=== PATIENT | female | born 1960 | race African-American/Black ===

== ENCOUNTER 2018-07-24 13:01 | Emergency (ER) | payer MEDICAID ==
[~2018-07-24] VITALS: Ht 180.3 cm; Wt 88.2 kg
[2018-07-24] MEDS ORDERED: PREDNISONE PO (14:04)
[2018-07-24] MEDS ORDERED: [UNRECOGNIZED DRUG - OTHER] PO (14:04)
[2018-07-24 14:13] LABS: BASOPHILS # (AUTO) 0.05 x10^3/uL (0-0.1); BASOPHILS % (AUTO) 1 % (0-1); EOSINOPHILS % (AUTO) 3 % (1-7); LYMPHOCYTES # (AUTO) 1.37 x10^3/uL (1-3.4); LYMPHOCYTES % (AUTO) 17 % (22-44); MD NO; MEAN CORPUSCULAR HEMOGLOBIN 26.4 pg (27.0-34.8); MEAN CORPUSCULAR HGB CONC 33.4 g/dL (32.4-35.8); MEAN CORPUSCULAR VOLUME 78.9 fL (80-100); MEAN PLATELET VOLUME 6.9 fL (7.4-10.4); MONOCYTES # (AUTO) 0.26 x10^3/uL (0.2-0.8); MONOCYTES % (AUTO) 3 % (2-9); NEUTROPHILS # (AUTO) 6.15 x10^3/uL (1.8-6.8); NEUTROPHILS % (AUTO) 77 % (42-75); PLATELET COUNT 303 x10^3/uL (130-400); RED BLOOD COUNT 4.17 x10^6/uL (3.82-5.3); RED CELL DISTRIBUTION WIDTH 15.6 % (9.6-15.2)
[2018-07-24 14:25] LABS: ALBUMIN 3.6 g/dL (3.4-5.0); ANION GAP 11 mmol/L (5-15); CALCIUM 8.7 mg/dL (8.5-10.1); CHLORIDE 115 mmol/L (98-107)
[2018-07-24 14:29] LABS: ALANINE AMINOTRANSFERASE 16 U/L (12-78); ALKALINE PHOSPHATASE 286 U/L (45-117); BILIRUBIN,TOTAL 0.2 mg/dL (0.2-1.0); CREATININE 4.71 mg/dL (0.55-1.02); TOTAL PROTEIN 7.9 g/dL (6.4-8.2)
[2018-07-24 15:46] VITALS: BP 177/73
== END 2018-07-24 15:48 | disposition home or self-care (01) ==
LOC: ED 15:40
DX: I10 Essential (primary) hypertension (principal); N19 Unspecified kidney failure; N28.9 Disorder of kidney and ureter, unspecified; Z76.0 Encounter for issue of repeat prescription
CPT/HCPCS: 36415; 71045; 80053; 85025; 93005; 99284

== ENCOUNTER 2018-09-08 15:04 | Emergency (ER) | payer MEDICAID ==
[~2018-09-08] VITALS: Ht 180.3 cm; Wt 84.9 kg
[~2018-09-08 15:04] MED LIST: PREDNISONE PO; [UNRECOGNIZED DRUG - OTHER] PO
[2018-09-08 15:54] VITALS: BP 172/90
[2018-09-08] MEDS ORDERED: NIFE30TA2 PO (16:10)
[2018-09-08] MEDS ORDERED: ALBU6.7H INH (16:10)
[2018-09-08] MEDS ORDERED: FLUT1DIS5 IH (16:10)
== END 2018-09-08 16:06 | disposition home or self-care (01) ==
LOC: ED 16:00
DX: J18.9 Pneumonia, unspecified organism (principal); Z76.0 Encounter for issue of repeat prescription; I10 Essential (primary) hypertension; J45.909 Unspecified asthma, uncomplicated; M19.90 Unspecified osteoarthritis, unspecified site
CPT/HCPCS: 71046; 99283

== ENCOUNTER 2018-11-14 18:03 | Emergency (ER) | payer MEDICAID ==
[~2018-11-14] VITALS: Ht 180.3 cm; Wt 86.0 kg
[~2018-11-14 18:03] MED LIST changes: +ALBU6.7H INH; +FLUT1DIS5 IH; +NIFE30TA2 PO
--- NOTE | 2018-11-14 18:49 | NUR ---
PT PRESENTED TO ED WITH COUGH X 1.5 WEEKS. PT WITH HX: ASTHMA. PT A&OX4. PT PLACED IN ROOM AND PLACED ON BP AND CONT. PULSE OXIMETER. ASSESSMENT COMPLETED. CALL LIGHT IN REACH.
--- NOTE | 2018-11-14 18:52 | NUR ---
EKG DONE AND PRESENTED TO
--- NOTE | 2018-11-14 18:53 | NUR ---
PT STATES SHE HAS BEEN OUT OF HER BP MEDS AND ASTHMA INHALERS.
[2018-11-14 18:54] LABS: ANION GAP 9 mmol/L (5-15); CALCIUM 8.3 mg/dL (8.5-10.1); CHLORIDE 111 mmol/L (98-107); CREATININE 4.88 mg/dL (0.55-1.02)
[2018-11-14 18:58] LABS: ALKALINE PHOSPHATASE 322 U/L (45-117); BILIRUBIN,TOTAL 0.2 mg/dL (0.2-1.0); TOTAL PROTEIN 8.6 g/dL (6.4-8.2); TROPONIN I < 0.015 ng/mL (0.000-0.045)
[2018-11-14] MEDS ORDERED: niFEDipine ER 30 MG TABLET.ER PO ONE (19:00)
[2018-11-14 19:02] LABS: ALANINE AMINOTRANSFERASE 16 U/L (12-78)
[2018-11-14 19:07] LABS: BASOPHILS # (AUTO) 0.09 x10^3/uL (0-0.1); BASOPHILS % (AUTO) 1 % (0-1); EOSINOPHILS % (AUTO) 7 % (1-7); LYMPHOCYTES # (AUTO) 2.33 x10^3/uL (1-3.4); LYMPHOCYTES % (AUTO) 28 % (22-44); MD NO; MEAN CORPUSCULAR HEMOGLOBIN 26.5 pg (27.0-34.8); MEAN CORPUSCULAR HGB CONC 33.7 g/dL (32.4-35.8); MEAN CORPUSCULAR VOLUME 78.8 fL (80-100); MEAN PLATELET VOLUME 7.1 fL (7.4-10.4); MONOCYTES # (AUTO) 0.47 x10^3/uL (0.2-0.8); MONOCYTES % (AUTO) 6 % (2-9); NEUTROPHILS # (AUTO) 4.98 x10^3/uL (1.8-6.8); NEUTROPHILS % (AUTO) 59 % (42-75); PLATELET COUNT 330 x10^3/uL (130-400); RED BLOOD COUNT 4.14 x10^6/uL (3.82-5.3); RED CELL DISTRIBUTION WIDTH 16.6 % (9.6-15.2)
--- NOTE | 2018-11-14 19:07 | NUR ---
REPORT GIVEN TO RAKAN DIAZ
[2018-11-14 19:16] LABS: MICROSCOPIC AUTO
--- NOTE | 2018-11-14 19:30 | NUR ---
REPORT OF PT FROM JOE FINLEY AND ASSUMING CARE OF PT.
--- NOTE | 2018-11-14 19:51 | NUR ---
YELLOW SLIP SENT TO PHARMACY FOR MED PER NOV.
[2018-11-14 20:04] VITALS: BP 182/89
--- NOTE | 2018-11-14 20:04 | NUR ---
PT VSS AND UPDATED IN EMR.
--- NOTE | 2018-11-14 20:18 | NUR ---
PT MEDICATED PER MAR.
== END 2018-11-14 21:54 | disposition home or self-care (01) ==
LOC: ED 21:48
DX: N30.00 Acute cystitis without hematuria (principal); I10 Essential (primary) hypertension; J45.909 Unspecified asthma, uncomplicated; M19.90 Unspecified osteoarthritis, unspecified site; Z76.0 Encounter for issue of repeat prescription; Z87.01 Personal history of pneumonia (recurrent)
CPT/HCPCS: 36415; 71046; 80053; 81001; 83880; 84484; 85025; 93005; 99284

== ENCOUNTER 2019-01-20 02:49 | Emergency (ER) | payer MEDICAID ==
[~2019-01-20] VITALS: Ht 180.3 cm; Wt 82.0 kg
[2019-01-20 02:51] VITALS: BP 201/100
--- NOTE | 2019-01-20 03:02 | NUR ---
FIRST CONTACT WITH PT. PT NEED MEDICATION REFILL ON BP MEDS AND ASTHMA MEDS. HASNT TAKEN BP MEDS FOR 1 MONTH. PT HYPERTENSIVE IN TRIAGE BUT DENIES SEPULVEDA, DIZZINESS OR CHEST PAIN. PT'S AOX4. RESPS EVEN AND UNLABORED.
--- NOTE | 2019-01-20 03:38 | NUR ---
PT GIVEN DC INSTRUCTIONS AND SCRIPTS. PT EDUCATED REGARDING DC MEDICATIONS. PT'S AOX4. RESPS EVEN AND UNLABORED. PT AMB TO DC WITH STEADY GAIT. NO ACUTE DISTRESS AT DC.
== END 2019-01-20 03:39 | disposition home or self-care (01) ==
LOC: ED 03:00
DX: I10 Essential (primary) hypertension (principal); Z76.0 Encounter for issue of repeat prescription; J45.909 Unspecified asthma, uncomplicated; F17.200 Nicotine dependence, unspecified, uncomplicated
CPT/HCPCS: 93005; 99283

== ENCOUNTER 2019-10-10 15:34 | Emergency (ER) | payer MEDICAID ==
[~2019-10-10] VITALS: Ht 180.3 cm; Wt 87.6 kg
[~2019-10-10 15:34] MED LIST changes: -ALBU6.7H INH; +ALBU6.7H8 INH
--- NOTE | 2019-10-10 16:00 | NUR ---
PHARMACY REQUEST SLIP SENT TO PHARMACY FOR PROCARDIA.
[2019-10-10 16:11] VITALS: BP 176/93
--- NOTE | 2019-10-10 16:27 | NUR ---
Patient given discharge instructions and they have confirmed that they understand the instructions. Patient ambulatory with steady gait.
== END 2019-10-10 16:57 | disposition home or self-care (01) ==
LOC: ED 16:30
DX: J45.30 Mild persistent asthma, uncomplicated (principal); F17.200 Nicotine dependence, unspecified, uncomplicated; I10 Essential (primary) hypertension; R94.31 Abnormal electrocardiogram [ECG] [EKG]; Z90.5 Acquired absence of kidney; Z76.0 Encounter for issue of repeat prescription
CPT/HCPCS: 93005; 99283

== ENCOUNTER 2020-02-14 12:10 | Emergency (ER) | payer MEDICAID ==
[~2020-02-14] VITALS: Ht 180.3 cm; Wt 84.5 kg
--- NOTE | 2020-02-14 14:11 | NUR ---
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
[2020-02-14 15:01] VITALS: BP 146/83
--- NOTE | 2020-02-14 15:01 | NUR ---
PT UPRIGHT ON GURNEY AWAKE & COMFORTABLE, WATCHING TV, NAD, RESPONDS APPROP TO STAFF, COMFORT MEASURES PROVIDED, CALL LIGHT WITHIN REACH.
--- NOTE | 2020-02-14 15:10 | NUR ---
PT TO RAD
--- NOTE | 2020-02-14 15:22 | NUR ---
PT FROM RAD TO US
--- NOTE | 2020-02-14 16:01 | NUR ---
PT RETURNED FROM US, LAYING ON GURNEY AWAKE & COMFORTABLE, WATCHING TV, NAD, RESPONDS APPROP TO STAFF, NO NEEDS AT THIS TIME, CALL LIGHT WITHIN REACH.
--- NOTE | 2020-02-14 16:36 | NUR ---
TASK RN: Patient given discharge instructions and they have confirmed that they understand the instructions. Patient ambulatory with steady gait.
== END 2020-02-14 16:38 | disposition home or self-care (01) ==
LOC: ED 14:45
DX: N63.0 Unspecified lump in unspecified breast (principal); R06.02 Shortness of breath; I10 Essential (primary) hypertension; J45.909 Unspecified asthma, uncomplicated; Z90.5 Acquired absence of kidney
CPT/HCPCS: 71046; 76642; 99284

== ENCOUNTER 2020-03-14 09:01 | Outpatient (CLI) | payer MEDICAID | END 2020-03-14 23:59 | disposition home or self-care (01) | LOC: CFH 09:01 | PROVIDERS: ATTEND Specialist | DX: N63.42 Unspecified lump in left breast, subareolar (principal) | CPT/HCPCS: 76642; 77066; G0279 ==

== ENCOUNTER 2020-03-20 07:58 | Outpatient (CLI) | payer MEDICAID ==
[2020-03-20] MEDS ORDERED: SODIUM BICARBONATE 4.2%, 5ML ONE (08:30)
[2020-03-20] MEDS ORDERED: LIDOCAINE 1%, 20ML ONE (08:30)
[2020-03-20] MEDS ORDERED: LIDOCAINE 1%-EPI 1:100K, 20ML ONE (08:30)
== END 2020-03-20 23:59 | disposition home or self-care (01) ==
LOC: CFH 07:58
PROVIDERS: ATTEND Specialist
DX: N63.25 Unspecified lump in the left breast, overlapping quadrants (principal); D24.2 Benign neoplasm of left breast
CPT/HCPCS: 19083; 77065; 88305; J3490; 19285

== ENCOUNTER 2020-07-16 20:12 | Inpatient (IN) | payer MEDICAID ==
[~2020-07-16] VITALS: Ht 180.3 cm; Wt 83.5 kg
--- NOTE | 2020-07-16 20:20 | NUR ---
Provider at bedside
--- NOTE | 2020-07-16 20:29 | NUR ---
BIBA. A&o x4, answering questions appropriately. C/o N/V x 1 week, unable to tolerate PO intake with associated increased weakness. Per EMS, pt had difficulty ambulating with 2 staff assist. Pt states hx of renal failure. Per pt report, PCP has not recommended starting dialysis yet. Pt states she has noticed dark red blood in bile x2 days. Abd soft, flat, nondistended. No tenderness noted to abd or flank bilaterally upon palpation. States no BM x1 week, hx of similar. Also c/o chills, unknown if she has been febrile. States boyfriend has had fever. Denies chest pain. Denies SOB. Placed on continuous tele/O2 monitoring. No s/sx acute distress. Bed low, side rails up, call negro within reach
[2020-07-16] MEDS ORDERED: SODIUM CHLORIDE 0.9% 1,000ML IVBOLUS ONE (20:30)
[2020-07-16] MEDS ORDERED: ONDANSETRON 2MG/ML, 2ML IVPush ONE (20:30)
[2020-07-16 21:10] LABS: BASOPHILS % (AUTO) 1 % (0-1); EOSINOPHILS % (AUTO) 1 % (1-7); LYMPHOCYTES % (AUTO) 15 % (22-44); MEAN CORPUSCULAR HEMOGLOBIN 25.9 pg (27.0-34.8); MEAN CORPUSCULAR HGB CONC 32.5 g/dL (32.4-35.8); MEAN PLATELET VOLUME 8.1 fL (7.4-10.4); MONOCYTES % (AUTO) 8 % (2-9); NEUTROPHILS % (AUTO) 75 % (42-75); PLATELET COUNT 196 x10^3/uL (130-400); RED BLOOD COUNT 3.17 x10^6/uL (3.82-5.3); RED CELL DISTRIBUTION WIDTH 16.2 % (9.6-15.2)
[2020-07-16 21:13] LABS: ALANINE AMINOTRANSFERASE 12 U/L (12-78); ALBUMIN 3.5 g/dL (3.4-5.0); ANION GAP 21 mmol/L (5-15); CALCIUM 7.6 mg/dL (8.5-10.1); CHLORIDE 106 mmol/L (98-107)
[2020-07-16 21:17] LABS: ALKALINE PHOSPHATASE 318 U/L (45-117); BILIRUBIN,TOTAL 0.4 mg/dL (0.2-1.0); TOTAL PROTEIN 8.4 g/dL (6.4-8.2); TROPONIN I < 0.015 ng/mL (0.000-0.045)
[2020-07-16 21:36] LABS: INTERNATIONAL NORMALIZED RATIO 1.08 (0.93-1.1); PROTHROMBIN TIME 11.4 Seconds (9.6-11.5)
[2020-07-16 21:39] LABS: MD MORPH REVIEW ONLY
[2020-07-16 21:53] LABS: ANISOCYTOSIS 1+; MICROCYTOSIS 1+
[2020-07-16 21:54] LABS: HYPOCHROMIA 1+
[2020-07-16 21:55] LABS: <PLATELET ESTIMATE> ADEQUATE; <PLT MORPHOLOGY> NORMAL PLT MORPH
[2020-07-16] MEDS ORDERED: SODIUM BICARBONATE 8.4% 150 MEQ in DEXTROSE 5% 1,000 ML IV ONE (22:30)
--- NOTE | 2020-07-16 22:56 | NUR ---
Attempted report x1 at [id number]
[2020-07-16] MEDS ORDERED: LABETALOL 5MG/ML, 20ML IVPush PRN (23:00)
[2020-07-16] MEDS ORDERED: ACETAMINOPHEN 325 MG TABLET PO PRN (23:00)
[2020-07-16] MEDS ORDERED: ALBUTEROL HFA 90 MCG/SPRAY INH PRN (23:00)
[2020-07-16] MEDS ORDERED: SODIUM BICARBONATE 8.4% 150 MEQ in DEXTROSE 5% 1,000 ML IV SCH (23:00)
[2020-07-16] MEDS ORDERED: DOCUSATE 100 MG CAPSULE PO PRN (23:00)
--- NOTE | 2020-07-16 23:56 | NUR ---
Attempted 2nd IV x2 with no effect. Awaiting 2nd liter IVF with bicarb from pharmacy. Inpatient RN aware.
--- NOTE | 2020-07-16 23:56 | NUR ---
Report given to Theron DIAZ
[2020-07-17] VITALS (10 sets, daily range): BP systolic 121–172; BP diastolic 71–94
[2020-07-17] MEDS: SODIUM BICARBONATE 8.4% 150 MEQ in DEXTROSE 5% 1,000 ML IV SCH ×5 (01:38→23:45)
[2020-07-17] MEDS: HEPARIN 5,000 UNITS/ML, 1ML SQ SCH ×3 (01:39→18:16)
[2020-07-17] MEDS ORDERED: ROCURONIUM 10MG/ML,5ML ONE (02:00)
[2020-07-17] MEDS ORDERED: PROPOFOL 10 MG/ML, 100ML IV ONE (02:00)
[2020-07-17] MEDS ORDERED: ETOMIDATE 20 MG/10 ML ONE (02:00)
[2020-07-17 02:36] LABS: ANION GAP 22 mmol/L (5-15); CHLORIDE 102 mmol/L (98-107)
[2020-07-17 03:45] LABS: CHOL/HDL RATIO 4.6; LDL/HDL RATIO 2.3 (0.5-3.0)
[2020-07-17 04:36] LABS: ANION GAP 20 mmol/L (5-15); CALCIUM 6.7 mg/dL (8.5-10.1); CHLORIDE 102 mmol/L (98-107)
[2020-07-17 05:01] LABS: BASOPHILS % (AUTO) 1 % (0-1); EOSINOPHILS % (AUTO) 2 % (1-7); LYMPHOCYTES % (AUTO) 18 % (22-44); MEAN CORPUSCULAR HEMOGLOBIN 26.7 pg (27.0-34.8); MEAN CORPUSCULAR HGB CONC 34.2 g/dL (32.4-35.8); MEAN PLATELET VOLUME 7.9 fL (7.4-10.4); MONOCYTES % (AUTO) 7 % (2-9); NEUTROPHILS % (AUTO) 73 % (42-75); PLATELET COUNT 159 x10^3/uL (130-400); RED BLOOD COUNT 2.47 x10^6/uL (3.82-5.3); RED CELL DISTRIBUTION WIDTH 15.7 % (9.6-15.2)
[2020-07-17 06:00] LABS: ANISOCYTOSIS 1+; MD MORPH REVIEW ONLY; MICROCYTOSIS 1+; SPHEROCYTES 1+
[2020-07-17 06:01] LABS: <PLATELET ESTIMATE> ADEQUATE; <PLT MORPHOLOGY> NORMAL PLT MORPH
[2020-07-17 09:06] LABS: ANION GAP 22 mmol/L (5-15); CALCIUM 6.4 mg/dL (8.5-10.1); CHLORIDE 101 mmol/L (98-107)
[2020-07-17 09:11] LABS: % IRON SATURATION 58 % (20-55); IRON LEVEL 78 mcg/dL (50-170); TOTAL IRON BINDING CAPACITY 134 mcg/dL (250-450)
[2020-07-17 10:29] LABS: CALCIUM 6.5 mg/dL (8.5-10.1)
[2020-07-17] MEDS: FLUTICASONE/VILANTEROL 200-25MCG/INH INH SCH (10:49)
[2020-07-17] MEDS: niFEDipine ER 30 MG TABLET.ER PO SCH (10:49)
[2020-07-17] MEDS ORDERED: FLUMAZENIL 0.1 MG/1 ML, 5ML ONE (12:26)
[2020-07-17] MEDS ORDERED: FENTANYL PF 100 MCG/2ML ONE (12:26)
[2020-07-17] MEDS ORDERED: CEFAZOLIN PMX 1GM/50ML 0 ML ONE (12:26)
[2020-07-17] MEDS ORDERED: NALOXONE 1 MG/ML, 2ML ONE (12:26)
[2020-07-17] MEDS ORDERED: MIDAZOLAM 1 MG/ML, 5ML ONE (12:26)
[2020-07-17] MEDS ORDERED: LIDOCAINE 1%, 10ML ONE (12:27)
[2020-07-17] MEDS ORDERED: LIDOCAINE 1%, 20ML ONE (12:27)
[2020-07-17] MEDS ORDERED: VANCOMYCIN 0 MG in SODIUM CHLORIDE 0.9% 100 ML IV STA (12:47)
[2020-07-17] MEDS ORDERED: VANCOMYCIN PER PHARMACY MC PRN (13:00)
[2020-07-17] MEDS ORDERED: PHARMACOKINETIC CONSULTATION MC ONE (13:30)
[2020-07-17] MEDS ORDERED: PHARMACOKINETIC MONITORING MC PRN (13:30)
[2020-07-17] MEDS ORDERED: VANCOMYCIN 1,500 MG in SODIUM CHLORIDE 0.9% 250 ML IV ONE (13:30)
[2020-07-17] MEDS: ARANESP 100 MCG/ML **ESRD SQ SCH (14:48)
[2020-07-17] MEDS: PROPOFOL 100 ML IV PRN ×2 (20:49→23:50)
[2020-07-17 20:58] LABS: BASOPHILS % (AUTO) 1 % (0-1); EOSINOPHILS % (AUTO) 1 % (1-7); LYMPHOCYTES % (AUTO) 21 % (22-44); MEAN CORPUSCULAR HEMOGLOBIN 26.6 pg (27.0-34.8); MEAN CORPUSCULAR HGB CONC 34.3 g/dL (32.4-35.8); MEAN PLATELET VOLUME 7.6 fL (7.4-10.4); MONOCYTES % (AUTO) 14 % (2-9); NEUTROPHILS % (AUTO) 63 % (42-75); PLATELET COUNT 159 x10^3/uL (130-400); RED BLOOD COUNT 3.39 x10^6/uL (3.82-5.3); RED CELL DISTRIBUTION WIDTH 16.2 % (9.6-15.2)
[2020-07-17] MEDS ORDERED: MIDAZOLAM 1 MG/ML, 2ML IVPush ONE (21:00)
[2020-07-17] MEDS ORDERED: ETOMIDATE 20 MG/10 ML IV ONE (21:00)
[2020-07-17] MEDS ORDERED: ROCURONIUM 10 MG/ML,10ML IVPush ONE (21:00)
[2020-07-17] MEDS ORDERED: PROPOFOL 100 ML IV PRN (21:00)
[2020-07-17 21:02] LABS: MD NO
[2020-07-17 21:08] LABS: ALANINE AMINOTRANSFERASE 12 U/L (12-78); ALBUMIN 3.4 g/dL (3.4-5.0); ANION GAP 18 mmol/L (5-15); CALCIUM 7.1 mg/dL (8.5-10.1); CHLORIDE 98 mmol/L (98-107)
[2020-07-17 21:11] LABS: ALKALINE PHOSPHATASE 267 U/L (45-117); BILIRUBIN,TOTAL 0.5 mg/dL (0.2-1.0)
[2020-07-17] MEDS ORDERED: CEFTRIAXONE PMX 2GM/50ML 50 ML IVPB SCH (23:00)
[2020-07-18] VITALS (8 sets, daily range): BP systolic 124–160; BP diastolic 69–88
[2020-07-18] MEDS: HEPARIN 5,000 UNITS/ML, 1ML SQ SCH (00:59)
[2020-07-18] MEDS: LEVETIRACETAM 500 MG in SODIUM CHLORIDE 0.9% 100 ML IV SCH ×2 (02:43→14:01)
[2020-07-18 04:35] LABS: BASOPHILS % (AUTO) 1 % (0-1); EOSINOPHILS % (AUTO) 1 % (1-7); LYMPHOCYTES % (AUTO) 28 % (22-44); MEAN CORPUSCULAR HEMOGLOBIN 26.8 pg (27.0-34.8); MEAN PLATELET VOLUME 7.6 fL (7.4-10.4); MONOCYTES % (AUTO) 12 % (2-9); NEUTROPHILS % (AUTO) 59 % (42-75); PLATELET COUNT 138 x10^3/uL (130-400); RED BLOOD COUNT 2.84 x10^6/uL (3.82-5.3); RED CELL DISTRIBUTION WIDTH 15.8 % (9.6-15.2)
[2020-07-18 04:43] LABS: MD NO
[2020-07-18 04:46] LABS: ALANINE AMINOTRANSFERASE 10 U/L (12-78); ALBUMIN 2.8 g/dL (3.4-5.0); ANION GAP 13 mmol/L (5-15); CHLORIDE 98 mmol/L (98-107)
[2020-07-18 04:49] LABS: ALKALINE PHOSPHATASE 210 U/L (45-117); BILIRUBIN,TOTAL 0.3 mg/dL (0.2-1.0); TOTAL PROTEIN 6.7 g/dL (6.4-8.2)
[2020-07-18] MEDS: PROPOFOL 100 ML IV PRN (05:01)
[2020-07-18 06:40] LABS: CHLORIDE,URINE RANDOM 61 mmol/L; POTASSIUM,URINE RANDOM 10 mmol/L; SODIUM,URINE RANDOM 70 mmol/L
[2020-07-18 06:46] LABS: MICROSCOPIC INDICATED
[2020-07-18] MEDS: FLUTICASONE/VILANTEROL 200-25MCG/INH INH SCH (09:00)
[2020-07-18] MEDS: niFEDipine ER 30 MG TABLET.ER PO SCH (09:00)
[2020-07-18] MEDS ORDERED: CEFTRIAXONE PMX 1GM/50ML 50 ML IV SCH (10:00)
[2020-07-18] MEDS: ONDANSETRON 2MG/ML, 2ML IVPush PRN ×2 (10:45→17:43)
[2020-07-18] MEDS: CEFTRIAXONE PMX 2GM/50ML 50 ML IVPB SCH (13:00)
[2020-07-18] MEDS ORDERED: LORazepam 2 MG/ML, 1ML ONE (19:56)
[2020-07-18] MEDS: LORazepam 2 MG/ML, 1ML IVPush PRN (20:00)
[2020-07-19] MEDS ORDERED: NICOTINE 21 MG/24 HR PATCH.TD24 TD SCH (01:00)
[2020-07-19] MEDS: LEVETIRACETAM 500 MG in SODIUM CHLORIDE 0.9% 100 ML IV SCH ×2 (01:04→14:00)
[2020-07-19 04:05] VITALS: BP 137/77
[2020-07-19 04:52] LABS: BASOPHILS % (AUTO) 1 % (0-1); EOSINOPHILS % (AUTO) 1 % (1-7); LYMPHOCYTES % (AUTO) 17 % (22-44); MEAN CORPUSCULAR HEMOGLOBIN 27.6 pg (27.0-34.8); MEAN CORPUSCULAR HGB CONC 34.3 g/dL (32.4-35.8); MEAN PLATELET VOLUME 7.8 fL (7.4-10.4); MONOCYTES % (AUTO) 12 % (2-9); NEUTROPHILS % (AUTO) 70 % (42-75); PLATELET COUNT 126 x10^3/uL (130-400); RED BLOOD COUNT 3.77 x10^6/uL (3.82-5.3); RED CELL DISTRIBUTION WIDTH 16.2 % (9.6-15.2)
[2020-07-19 04:57] LABS: MD NO
[2020-07-19 05:03] LABS: ALBUMIN 2.9 g/dL (3.4-5.0); ANION GAP 12 mmol/L (5-15); CALCIUM 7.3 mg/dL (8.5-10.1); CHLORIDE 102 mmol/L (98-107)
[2020-07-19 05:07] LABS: ALANINE AMINOTRANSFERASE 9 U/L (12-78); ALKALINE PHOSPHATASE 197 U/L (45-117); BILIRUBIN,TOTAL 0.5 mg/dL (0.2-1.0); CREATININE 6.27 mg/dL (0.55-1.02)
[2020-07-19] MEDS ORDERED: POTASSIUM CHLORIDE 20 MEQ TAB.ER.PRT PO ONE (07:00)
[2020-07-19] MEDS: FLUTICASONE/VILANTEROL 200-25MCG/INH INH SCH (08:34)
[2020-07-19] MEDS: niFEDipine ER 30 MG TABLET.ER PO SCH (12:41)
[2020-07-19] MEDS: CEFTRIAXONE PMX 2GM/50ML 50 ML IVPB SCH (12:42)
[2020-07-19] MEDS: ATORVASTATIN 40 MG TABLET PO SCH (20:11)
[2020-07-19 20:43] VITALS: BP 132/78
[2020-07-20] MEDS: LEVETIRACETAM 500 MG in SODIUM CHLORIDE 0.9% 100 ML IV SCH ×2 (01:40→15:40)
[2020-07-20 02:11] VITALS: BP 132/73
[2020-07-20 05:55] LABS: ANION GAP 13 mmol/L (5-15); CALCIUM 8.1 mg/dL (8.5-10.1); CHLORIDE 102 mmol/L (98-107)
[2020-07-20 05:56] LABS: CREATININE 8.22 mg/dL (0.55-1.02)
[2020-07-20] MEDS: niFEDipine ER 30 MG TABLET.ER PO SCH (09:31)
[2020-07-20] MEDS: FLUTICASONE/VILANTEROL 200-25MCG/INH INH SCH (09:32)
[2020-07-20 09:59] VITALS: BP 137/74
[2020-07-20] MEDS: CEFTRIAXONE PMX 2GM/50ML 50 ML IVPB SCH (13:29)
[2020-07-20 13:58] VITALS: BP 127/72
[2020-07-20 14:08] LABS: OCCULT BLOOD NEGATIVE (NEGATIVE)
[2020-07-20] MEDS: POTASSIUM CHLORIDE 20 MEQ TAB.ER.PRT PO SCH (15:40)
[2020-07-20 19:38] VITALS: BP 114/77
[2020-07-20] MEDS: ATORVASTATIN 40 MG TABLET PO SCH (19:45)
[2020-07-21 00:56] VITALS: BP 131/76
[2020-07-21] MEDS: LEVETIRACETAM 500 MG in SODIUM CHLORIDE 0.9% 100 ML IV SCH ×2 (01:57→16:00)
[2020-07-21 05:45] LABS: BASOPHILS % (AUTO) 1 % (0-1); EOSINOPHILS % (AUTO) 3 % (1-7); LYMPHOCYTES % (AUTO) 17 % (22-44); MEAN CORPUSCULAR HEMOGLOBIN 27.3 pg (27.0-34.8); MEAN CORPUSCULAR HGB CONC 33.1 g/dL (32.4-35.8); MEAN PLATELET VOLUME 7.9 fL (7.4-10.4); MONOCYTES % (AUTO) 10 % (2-9); NEUTROPHILS % (AUTO) 69 % (42-75); PLATELET COUNT 157 x10^3/uL (130-400); RED BLOOD COUNT 3.76 x10^6/uL (3.82-5.3); RED CELL DISTRIBUTION WIDTH 16.5 % (9.6-15.2)
[2020-07-21 05:55] LABS: MD NO
[2020-07-21 06:00] LABS: ANION GAP 14 mmol/L (5-15); CHLORIDE 102 mmol/L (98-107); CREATININE 8.92 mg/dL (0.55-1.02)
[2020-07-21 07:49] VITALS: BP 126/71
[2020-07-21 09:11] VITALS: BP 152/76
[2020-07-21] MEDS: FLUTICASONE/VILANTEROL 200-25MCG/INH INH SCH (09:18)
[2020-07-21] MEDS: POTASSIUM CHLORIDE 20 MEQ TAB.ER.PRT PO SCH (09:25)
[2020-07-21] MEDS: niFEDipine ER 30 MG TABLET.ER PO SCH (09:25)
[2020-07-21] MEDS: ONDANSETRON 2MG/ML, 2ML IVPush PRN ×2 (09:37→16:00)
[2020-07-21] MEDS: CEFTRIAXONE PMX 2GM/50ML 50 ML IVPB SCH (12:57)
[2020-07-21 13:00] VITALS: BP 124/76
[2020-07-21] MEDS: CHOLECALCIFEROL 5,000u TAB PO SCH (13:09)
[2020-07-21] MEDS: CALCIUM ACETATE 667 MG CAPSULE PO SCH ×2 (13:09→17:00)
[2020-07-21] MEDS: ATORVASTATIN 40 MG TABLET PO SCH (21:23)
[2020-07-22 01:53] VITALS: BP 104/62
[2020-07-22] MEDS: LEVETIRACETAM 500 MG in SODIUM CHLORIDE 0.9% 100 ML IV SCH (01:55)
[2020-07-22 06:28] LABS: ANION GAP 11 mmol/L (5-15); CALCIUM 7.7 mg/dL (8.5-10.1); CHLORIDE 103 mmol/L (98-107); CREATININE 6.09 mg/dL (0.55-1.02)
[2020-07-22 07:09] VITALS: BP 103/60
[2020-07-22] MEDS ORDERED: POTASSIUM CHLORIDE 20 MEQ TAB.ER.PRT PO ONE (08:00)
[2020-07-22] MEDS: CALCIUM ACETATE 667 MG CAPSULE PO SCH ×3 (08:00→17:00)
[2020-07-22] MEDS: FLUTICASONE/VILANTEROL 200-25MCG/INH INH SCH (11:39)
[2020-07-22] MEDS: CHOLECALCIFEROL 5,000u TAB PO SCH (11:40)
[2020-07-22] MEDS: CEFTRIAXONE PMX 2GM/50ML 50 ML IVPB SCH (11:41)
[2020-07-22] MEDS: niFEDipine ER 30 MG TABLET.ER PO SCH (11:41)
[2020-07-22] MEDS: CALCITRIOL 0.25 MCG CAPSULE PO SCH (11:42)
[2020-07-22] MEDS: LEVETIRACETAM 500 MG TABLET PO SCH ×2 (11:55→20:47)
[2020-07-22 15:59] VITALS: BP 112/68
[2020-07-22 19:36] VITALS: BP 106/68
[2020-07-22] MEDS: ATORVASTATIN 40 MG TABLET PO SCH (20:47)
[2020-07-23 00:44] VITALS: BP 120/70
[2020-07-23 06:02] LABS: BASOPHILS % (AUTO) 1 % (0-1); EOSINOPHILS % (AUTO) 3 % (1-7); LYMPHOCYTES % (AUTO) 16 % (22-44); MEAN CORPUSCULAR HEMOGLOBIN 27.2 pg (27.0-34.8); MEAN CORPUSCULAR HGB CONC 32.5 g/dL (32.4-35.8); MONOCYTES % (AUTO) 10 % (2-9); NEUTROPHILS % (AUTO) 69 % (42-75); PLATELET COUNT 197 x10^3/uL (130-400); RED BLOOD COUNT 3.57 x10^6/uL (3.82-5.3)
[2020-07-23 06:20] LABS: MD NO
[2020-07-23 06:46] LABS: ANION GAP 10 mmol/L (5-15); CHLORIDE 104 mmol/L (98-107)
[2020-07-23 07:12] VITALS: BP 134/73
[2020-07-23] MEDS: FLUTICASONE/VILANTEROL 200-25MCG/INH INH SCH (09:26)
[2020-07-23] MEDS: CALCIUM ACETATE 667 MG CAPSULE PO SCH ×3 (09:26→22:08)
[2020-07-23] MEDS: CHOLECALCIFEROL 5,000u TAB PO SCH (09:26)
[2020-07-23] MEDS: CALCITRIOL 0.25 MCG CAPSULE PO SCH (09:26)
[2020-07-23] MEDS: niFEDipine ER 30 MG TABLET.ER PO SCH (09:26)
[2020-07-23] MEDS: LEVETIRACETAM 500 MG TABLET PO SCH ×2 (09:26→22:08)
[2020-07-23] MEDS: ONDANSETRON 2MG/ML, 2ML IVPush PRN (09:32)
[2020-07-23 12:40] VITALS: BP 132/75
[2020-07-23] MEDS: CEFTRIAXONE PMX 2GM/50ML 50 ML IVPB SCH (13:04)
[2020-07-23] MEDS: ALBUTEROL HFA 90 MCG/SPRAY INH PRN (17:36)
[2020-07-23 19:16] VITALS: BP 127/79
[2020-07-23] MEDS: ATORVASTATIN 40 MG TABLET PO SCH (22:08)
[2020-07-24 00:20] VITALS: BP 122/78
[2020-07-24 07:07] VITALS: BP 124/66
[2020-07-24] MEDS: CALCIUM ACETATE 667 MG CAPSULE PO SCH ×3 (08:00→17:10)
[2020-07-24] MEDS: CHOLECALCIFEROL 5,000u TAB PO SCH (08:50)
[2020-07-24] MEDS: CALCITRIOL 0.25 MCG CAPSULE PO SCH (08:50)
[2020-07-24] MEDS: LEVETIRACETAM 500 MG TABLET PO SCH (08:52)
[2020-07-24] MEDS: niFEDipine ER 30 MG TABLET.ER PO SCH (08:52)
[2020-07-24] MEDS: FLUTICASONE/VILANTEROL 200-25MCG/INH INH SCH (08:52)
[2020-07-24 12:17] VITALS: BP 111/71
[2020-07-24] MEDS: CEFTRIAXONE PMX 2GM/50ML 50 ML IVPB SCH (12:51)
[2020-07-24] MEDS: ARANESP 100 MCG/ML **ESRD SQ SCH (12:52)
[2020-07-24 20:05] VITALS: BP 110/66
[2020-07-24] MEDS: ATORVASTATIN 40 MG TABLET PO SCH (21:42)
[2020-07-25 03:00] VITALS: BP 122/68
[2020-07-25 07:21] VITALS: BP 121/75
[2020-07-25 08:15] LABS: BASOPHILS % (AUTO) 1 % (0-1); EOSINOPHILS % (AUTO) 3 % (1-7); LYMPHOCYTES % (AUTO) 17 % (22-44); MEAN CORPUSCULAR HEMOGLOBIN 27.5 pg (27.0-34.8); MEAN CORPUSCULAR HGB CONC 32.8 g/dL (32.4-35.8); MEAN PLATELET VOLUME 7.3 fL (7.4-10.4); MONOCYTES % (AUTO) 12 % (2-9); NEUTROPHILS % (AUTO) 68 % (42-75); PLATELET COUNT 243 x10^3/uL (130-400); RED BLOOD COUNT 3.53 x10^6/uL (3.82-5.3)
[2020-07-25 08:17] LABS: MD NO
[2020-07-25 08:29] LABS: ALBUMIN 2.6 g/dL (3.4-5.0); ANION GAP 12 mmol/L (5-15); CALCIUM 8.8 mg/dL (8.5-10.1); CHLORIDE 101 mmol/L (98-107)
[2020-07-25 08:33] LABS: ALANINE AMINOTRANSFERASE 22 U/L (12-78); ALKALINE PHOSPHATASE 162 U/L (45-117); BILIRUBIN,TOTAL 0.5 mg/dL (0.2-1.0); CREATININE 7.86 mg/dL (0.55-1.02); TOTAL PROTEIN 7.5 g/dL (6.4-8.2)
[2020-07-25] MEDS: FLUTICASONE/VILANTEROL 200-25MCG/INH INH SCH (09:20)
[2020-07-25] MEDS: CHOLECALCIFEROL 5,000u TAB PO SCH (09:20)
[2020-07-25] MEDS: CALCIUM ACETATE 667 MG CAPSULE PO SCH ×3 (09:20→17:00)
[2020-07-25] MEDS: CALCITRIOL 0.25 MCG CAPSULE PO SCH (09:20)
[2020-07-25] MEDS: niFEDipine ER 30 MG TABLET.ER PO SCH (09:20)
[2020-07-25 12:06] VITALS: BP 116/74
[2020-07-25] MEDS: CEFTRIAXONE PMX 2GM/50ML 50 ML IVPB SCH (12:11)
[2020-07-25 12:16] VITALS: BP 117/71
[2020-07-25] MEDS: LORazepam 2 MG/ML, 1ML IVPush PRN (12:48)
[2020-07-25 19:47] VITALS: BP 107/70
[2020-07-25] MEDS: ATORVASTATIN 40 MG TABLET PO SCH (22:16)
[2020-07-26 00:23] VITALS: BP 113/73
[2020-07-26 06:54] VITALS: BP 121/73
[2020-07-26] MEDS ORDERED: PHARMACY MAY ADJ FOR RENAL FX MC PRN (07:00)
[2020-07-26 07:54] LABS: BASOPHILS % (AUTO) 1 % (0-1); EOSINOPHILS % (AUTO) 3 % (1-7); LYMPHOCYTES % (AUTO) 19 % (22-44); MEAN CORPUSCULAR HEMOGLOBIN 27.8 pg (27.0-34.8); MEAN CORPUSCULAR HGB CONC 33.1 g/dL (32.4-35.8); MEAN PLATELET VOLUME 7.3 fL (7.4-10.4); MONOCYTES % (AUTO) 12 % (2-9); NEUTROPHILS % (AUTO) 65 % (42-75); PLATELET COUNT 223 x10^3/uL (130-400); RED BLOOD COUNT 3.66 x10^6/uL (3.82-5.3); RED CELL DISTRIBUTION WIDTH 15.9 % (9.6-15.2)
[2020-07-26 07:56] LABS: MD NO
[2020-07-26 07:57] LABS: ALBUMIN 2.6 g/dL (3.4-5.0); ANION GAP 8 mmol/L (5-15); CALCIUM 8.9 mg/dL (8.5-10.1); CHLORIDE 103 mmol/L (98-107)
[2020-07-26 08:00] LABS: ALANINE AMINOTRANSFERASE 23 U/L (12-78); ALKALINE PHOSPHATASE 164 U/L (45-117); BILIRUBIN,TOTAL 0.5 mg/dL (0.2-1.0); CREATININE 5.57 mg/dL (0.55-1.02); TOTAL PROTEIN 7.8 g/dL (6.4-8.2)
[2020-07-26] MEDS: CALCIUM ACETATE 667 MG CAPSULE PO SCH ×3 (08:53→17:00)
[2020-07-26] MEDS: FLUTICASONE/VILANTEROL 200-25MCG/INH INH SCH (08:53)
[2020-07-26] MEDS: niFEDipine ER 30 MG TABLET.ER PO SCH (08:53)
[2020-07-26] MEDS: CALCITRIOL 0.25 MCG CAPSULE PO SCH (08:53)
[2020-07-26] MEDS: CHOLECALCIFEROL 5,000u TAB PO SCH (08:53)
[2020-07-26] MEDS ORDERED: SULFAMETH./TRIMETHOPRIM DS 800MG/160MG TABLET PO ONE (09:00)
[2020-07-26 12:02] VITALS: BP 105/72
[2020-07-26] MEDS: CEFTRIAXONE PMX 2GM/50ML 50 ML IVPB SCH (12:14)
[2020-07-26 20:36] VITALS: BP 111/73
[2020-07-26] MEDS: ATORVASTATIN 40 MG TABLET PO SCH (21:03)
[2020-07-26] MEDS: CINACALCET 30 MG TABLET PO SCH (21:03)
[2020-07-26] MEDS: SULFAMETH./TRIMETHOPRIM SS 400MG/80MG TABLET PO SCH (21:03)
[2020-07-27 01:47] VITALS: BP 120/70
[2020-07-27 07:15] LABS: BASOPHILS % (AUTO) 1 % (0-1); EOSINOPHILS % (AUTO) 4 % (1-7); LYMPHOCYTES % (AUTO) 22 % (22-44); MEAN CORPUSCULAR HEMOGLOBIN 27.9 pg (27.0-34.8); MEAN CORPUSCULAR HGB CONC 33.1 g/dL (32.4-35.8); MEAN PLATELET VOLUME 7.3 fL (7.4-10.4); MONOCYTES % (AUTO) 11 % (2-9); NEUTROPHILS % (AUTO) 63 % (42-75); PLATELET COUNT 227 x10^3/uL (130-400); RED BLOOD COUNT 3.38 x10^6/uL (3.82-5.3); RED CELL DISTRIBUTION WIDTH 16.3 % (9.6-15.2)
[2020-07-27 07:20] LABS: MD NO
[2020-07-27 07:29] LABS: ALANINE AMINOTRANSFERASE 25 U/L (12-78); ALBUMIN 2.4 g/dL (3.4-5.0); ANION GAP 12 mmol/L (5-15); CALCIUM 8.4 mg/dL (8.5-10.1); CHLORIDE 100 mmol/L (98-107); CREATININE 7.33 mg/dL (0.55-1.02)
[2020-07-27 07:31] LABS: ALKALINE PHOSPHATASE 151 U/L (45-117); BILIRUBIN,TOTAL 0.4 mg/dL (0.2-1.0); TOTAL PROTEIN 7.4 g/dL (6.4-8.2)
[2020-07-27 07:33] VITALS: BP 108/72
[2020-07-27] MEDS: CALCIUM ACETATE 667 MG CAPSULE PO SCH ×3 (08:00→17:00)
[2020-07-27] MEDS: niFEDipine ER 30 MG TABLET.ER PO SCH (09:33)
[2020-07-27] MEDS: CINACALCET 30 MG TABLET PO SCH ×2 (09:33→20:30)
[2020-07-27] MEDS: FLUTICASONE/VILANTEROL 200-25MCG/INH INH SCH (09:33)
[2020-07-27] MEDS: SULFAMETH./TRIMETHOPRIM SS 400MG/80MG TABLET PO SCH ×2 (09:33→20:30)
[2020-07-27] MEDS: CHOLECALCIFEROL 5,000u TAB PO SCH (09:33)
[2020-07-27] MEDS: CALCITRIOL 0.25 MCG CAPSULE PO SCH (09:33)
[2020-07-27 12:59] VITALS: BP 104/67
[2020-07-27] MEDS: CEFTRIAXONE PMX 2GM/50ML 50 ML IVPB SCH (13:28)
[2020-07-27 19:47] VITALS: BP 116/75
[2020-07-27] MEDS: ATORVASTATIN 40 MG TABLET PO SCH (20:30)
[2020-07-27 20:40] LABS: MICROSCOPIC INDICATED
[2020-07-28 01:11] VITALS: BP 101/64
[2020-07-28 06:43] LABS: BASOPHILS % (AUTO) 1 % (0-1); EOSINOPHILS % (AUTO) 3 % (1-7); LYMPHOCYTES % (AUTO) 22 % (22-44); MEAN CORPUSCULAR HEMOGLOBIN 28.1 pg (27.0-34.8); MEAN CORPUSCULAR HGB CONC 33.5 g/dL (32.4-35.8); MEAN PLATELET VOLUME 7.3 fL (7.4-10.4); MONOCYTES % (AUTO) 9 % (2-9); NEUTROPHILS % (AUTO) 65 % (42-75); PLATELET COUNT 249 x10^3/uL (130-400); RED BLOOD COUNT 3.39 x10^6/uL (3.82-5.3)
[2020-07-28 06:48] LABS: ALBUMIN 2.5 g/dL (3.4-5.0); ANION GAP 10 mmol/L (5-15); CALCIUM 7.8 mg/dL (8.5-10.1); CHLORIDE 99 mmol/L (98-107)
[2020-07-28 06:52] LABS: ALANINE AMINOTRANSFERASE 32 U/L (12-78); ALKALINE PHOSPHATASE 160 U/L (45-117); BILIRUBIN,TOTAL 0.3 mg/dL (0.2-1.0); CREATININE 8.38 mg/dL (0.55-1.02); TOTAL PROTEIN 7.4 g/dL (6.4-8.2)
[2020-07-28 07:09] LABS: MD NO
[2020-07-28] MEDS: CALCIUM ACETATE 667 MG CAPSULE PO SCH ×3 (08:00→17:00)
[2020-07-28 08:01] VITALS: BP 115/71
[2020-07-28] MEDS: FLUTICASONE/VILANTEROL 200-25MCG/INH INH SCH (09:46)
[2020-07-28] MEDS: CHOLECALCIFEROL 5,000u TAB PO SCH (09:47)
[2020-07-28] MEDS: SULFAMETH./TRIMETHOPRIM SS 400MG/80MG TABLET PO SCH ×2 (09:47→22:39)
[2020-07-28] MEDS: CINACALCET 30 MG TABLET PO SCH (09:47)
[2020-07-28] MEDS: niFEDipine ER 30 MG TABLET.ER PO SCH (09:47)
[2020-07-28] MEDS: CALCITRIOL 0.25 MCG CAPSULE PO SCH (09:47)
[2020-07-28 12:39] VITALS: BP 128/75
[2020-07-28] MEDS: CEFTRIAXONE PMX 2GM/50ML 50 ML IVPB SCH (12:47)
[2020-07-28] MEDS: ONDANSETRON 2MG/ML, 2ML IVPush PRN (14:51)
[2020-07-28 19:35] VITALS: BP 106/69
[2020-07-28] MEDS: ATORVASTATIN 40 MG TABLET PO SCH (22:39)
[2020-07-29 00:34] VITALS: BP 114/75
[2020-07-29] MEDS: CALCIUM ACETATE 667 MG CAPSULE PO SCH ×3 (08:00→17:00)
[2020-07-29 08:39] LABS: BASOPHILS % (AUTO) 1 % (0-1); EOSINOPHILS % (AUTO) 3 % (1-7); LYMPHOCYTES % (AUTO) 18 % (22-44); MEAN CORPUSCULAR HEMOGLOBIN 27.6 pg (27.0-34.8); MEAN CORPUSCULAR HGB CONC 33.1 g/dL (32.4-35.8); MEAN PLATELET VOLUME 6.9 fL (7.4-10.4); MONOCYTES % (AUTO) 10 % (2-9); NEUTROPHILS % (AUTO) 68 % (42-75); PLATELET COUNT 222 x10^3/uL (130-400); RED BLOOD COUNT 3.29 x10^6/uL (3.82-5.3); RED CELL DISTRIBUTION WIDTH 16.2 % (9.6-15.2)
[2020-07-29 08:41] LABS: MD NO
[2020-07-29 08:49] LABS: ALBUMIN 2.6 g/dL (3.4-5.0); ANION GAP 11 mmol/L (5-15); CALCIUM 8.4 mg/dL (8.5-10.1); CHLORIDE 102 mmol/L (98-107)
[2020-07-29 08:53] LABS: ALANINE AMINOTRANSFERASE 27 U/L (12-78); ALKALINE PHOSPHATASE 178 U/L (45-117); BILIRUBIN,TOTAL 0.3 mg/dL (0.2-1.0); CREATININE 6.08 mg/dL (0.55-1.02); TOTAL PROTEIN 7.7 g/dL (6.4-8.2)
[2020-07-29] MEDS: niFEDipine ER 30 MG TABLET.ER PO SCH ×2 (09:00→09:42)
[2020-07-29] MEDS: FLUTICASONE/VILANTEROL 200-25MCG/INH INH SCH (09:40)
[2020-07-29] MEDS: CHOLECALCIFEROL 5,000u TAB PO SCH (09:41)
[2020-07-29] MEDS: CALCITRIOL 0.25 MCG CAPSULE PO SCH (09:41)
[2020-07-29] MEDS: SULFAMETH./TRIMETHOPRIM SS 400MG/80MG TABLET PO SCH (09:42)
[2020-07-29 09:49] VITALS: BP 108/67
[2020-07-29] MEDS: CEFTRIAXONE PMX 2GM/50ML 50 ML IVPB SCH (12:56)
[2020-07-29] MEDS: OMEPRAZOLE 20 MG CAPSULE.DR PO SCH (12:56)
[2020-07-29 15:32] VITALS: BP 110/71
[2020-07-29 19:32] VITALS: BP 122/77
[2020-07-29] MEDS: ATORVASTATIN 40 MG TABLET PO SCH (21:19)
[2020-07-30 01:35] VITALS: BP 117/69
[2020-07-30 05:35] LABS: BASOPHILS % (AUTO) 1 % (0-1); EOSINOPHILS % (AUTO) 3 % (1-7); LYMPHOCYTES % (AUTO) 25 % (22-44); MEAN CORPUSCULAR HEMOGLOBIN 28.1 pg (27.0-34.8); MEAN CORPUSCULAR HGB CONC 33.1 g/dL (32.4-35.8); MONOCYTES % (AUTO) 10 % (2-9); NEUTROPHILS % (AUTO) 61 % (42-75); PLATELET COUNT 239 x10^3/uL (130-400); RED BLOOD COUNT 3.08 x10^6/uL (3.82-5.3); RED CELL DISTRIBUTION WIDTH 16.1 % (9.6-15.2)
[2020-07-30 05:36] LABS: MD NO
[2020-07-30 05:42] LABS: CALCIUM 8.7 mg/dL (8.5-10.1)
[2020-07-30 05:48] LABS: ALANINE AMINOTRANSFERASE 23 U/L (12-78); ALBUMIN 2.7 g/dL (3.4-5.0); ANION GAP 13 mmol/L (5-15); CALCIUM 8.3 mg/dL (8.5-10.1); CHLORIDE 102 mmol/L (98-107); CREATININE 8.03 mg/dL (0.55-1.02)
[2020-07-30 05:50] LABS: ALKALINE PHOSPHATASE 169 U/L (45-117); BILIRUBIN,TOTAL 0.4 mg/dL (0.2-1.0); TOTAL PROTEIN 7.7 g/dL (6.4-8.2)
[2020-07-30 07:28] VITALS: BP 119/72
[2020-07-30] MEDS: CALCIUM ACETATE 667 MG CAPSULE PO SCH ×3 (08:00→17:00)
[2020-07-30] MEDS: FLUTICASONE/VILANTEROL 200-25MCG/INH INH SCH ×2 (09:00→12:56)
[2020-07-30] MEDS: OMEPRAZOLE 20 MG CAPSULE.DR PO SCH (09:07)
[2020-07-30] MEDS: CALCITRIOL 0.25 MCG CAPSULE PO SCH (09:07)
[2020-07-30] MEDS: CHOLECALCIFEROL 5,000u TAB PO SCH (09:07)
[2020-07-30] MEDS: ALBUTEROL HFA 90 MCG/SPRAY INH PRN ×3 (09:12→22:29)
[2020-07-30] MEDS: CEFTRIAXONE PMX 2GM/50ML 50 ML IVPB SCH (12:55)
[2020-07-30 14:07] VITALS: BP 124/72
[2020-07-30] MEDS ORDERED: HEPARIN 5,000 UNITS/ML, 1ML SQ SCH (17:00)
[2020-07-30 21:04] VITALS: BP 109/69
[2020-07-30] MEDS: ATORVASTATIN 40 MG TABLET PO SCH (22:25)
[2020-07-31 02:01] VITALS: BP 101/65
[2020-07-31 06:11] LABS: BASOPHILS % (AUTO) 1 % (0-1); EOSINOPHILS % (AUTO) 3 % (1-7); LYMPHOCYTES % (AUTO) 27 % (22-44); MEAN CORPUSCULAR HEMOGLOBIN 27.9 pg (27.0-34.8); MEAN CORPUSCULAR HGB CONC 33.4 g/dL (32.4-35.8); MEAN PLATELET VOLUME 7.1 fL (7.4-10.4); MONOCYTES % (AUTO) 12 % (2-9); NEUTROPHILS % (AUTO) 57 % (42-75); PLATELET COUNT 214 x10^3/uL (130-400); RED CELL DISTRIBUTION WIDTH 16.2 % (9.6-15.2)
[2020-07-31 06:16] LABS: MD NO
[2020-07-31 06:25] LABS: CALCIUM 8.5 mg/dL (8.5-10.1); CHLORIDE 102 mmol/L (98-107)
[2020-07-31 06:33] LABS: ALANINE AMINOTRANSFERASE 19 U/L (12-78); ALBUMIN 2.6 g/dL (3.4-5.0); ALKALINE PHOSPHATASE 165 U/L (45-117); ANION GAP 5 mmol/L (5-15); BILIRUBIN,TOTAL 0.3 mg/dL (0.2-1.0); CREATININE 5.65 mg/dL (0.55-1.02); TOTAL PROTEIN 7.4 g/dL (6.4-8.2)
[2020-07-31 06:37] VITALS: BP 119/74
[2020-07-31] MEDS: CALCIUM ACETATE 667 MG CAPSULE PO SCH ×3 (08:00→14:30)
[2020-07-31] MEDS: OMEPRAZOLE 20 MG CAPSULE.DR PO SCH (08:44)
[2020-07-31] MEDS: CALCITRIOL 0.25 MCG CAPSULE PO SCH (08:45)
[2020-07-31] MEDS: CHOLECALCIFEROL 5,000u TAB PO SCH (08:45)
[2020-07-31] MEDS: FLUTICASONE/VILANTEROL 200-25MCG/INH INH SCH (12:14)
[2020-07-31 12:35] VITALS: BP 123/76
[2020-07-31] MEDS ORDERED: ARANESP 100 MCG/ML **ESRD SQ SCH (13:20)
[2020-07-31 19:59] VITALS: BP 131/79
[2020-07-31] MEDS: ATORVASTATIN 40 MG TABLET PO SCH (21:16)
[2020-08-01 01:00] VITALS: BP 144/77
[2020-08-01 05:07] LABS: BASOPHILS % (AUTO) 1 % (0-1); EOSINOPHILS % (AUTO) 3 % (1-7); LYMPHOCYTES % (AUTO) 27 % (22-44); MEAN CORPUSCULAR HEMOGLOBIN 27.9 pg (27.0-34.8); MEAN CORPUSCULAR HGB CONC 33.5 g/dL (32.4-35.8); MONOCYTES % (AUTO) 8 % (2-9); NEUTROPHILS % (AUTO) 60 % (42-75); PLATELET COUNT 223 x10^3/uL (130-400); RED BLOOD COUNT 3.14 x10^6/uL (3.82-5.3)
[2020-08-01 05:13] LABS: ALBUMIN 2.7 g/dL (3.4-5.0); ANION GAP 12 mmol/L (5-15); CALCIUM 8.3 mg/dL (8.5-10.1); CHLORIDE 104 mmol/L (98-107); MD NO
[2020-08-01 08:07] VITALS: BP 147/83
[2020-08-01] MEDS: OMEPRAZOLE 20 MG CAPSULE.DR PO SCH (09:00)
[2020-08-01] MEDS: CHOLECALCIFEROL 5,000u TAB PO SCH (09:00)
[2020-08-01] MEDS: ONDANSETRON 2MG/ML, 2ML IVPush PRN (09:00)
[2020-08-01] MEDS: CALCITRIOL 0.25 MCG CAPSULE PO SCH (09:00)
[2020-08-01] MEDS: FLUTICASONE/VILANTEROL 200-25MCG/INH INH SCH (09:01)
[2020-08-01] MEDS: CALCIUM ACETATE 667 MG CAPSULE PO SCH ×3 (09:01→17:29)
[2020-08-01 14:29] VITALS: BP 133/75
[2020-08-01 20:00] VITALS: BP 136/88
[2020-08-01] MEDS: ALBUTEROL HFA 90 MCG/SPRAY INH PRN (21:30)
[2020-08-01] MEDS: ATORVASTATIN 40 MG TABLET PO SCH (23:08)
[2020-08-01] MEDS: DIPHENHYDRAMINE/ZINC CRM 2%, 30GM TP PRN (23:13)
[2020-08-02 02:17] VITALS: BP 118/71
[2020-08-02 07:18] VITALS: BP 133/81
[2020-08-02] MEDS: CALCITRIOL 0.25 MCG CAPSULE PO SCH (09:14)
[2020-08-02] MEDS: OMEPRAZOLE 20 MG CAPSULE.DR PO SCH (09:15)
[2020-08-02] MEDS: CHOLECALCIFEROL 5,000u TAB PO SCH (09:15)
[2020-08-02] MEDS: CALCIUM ACETATE 667 MG CAPSULE PO SCH ×3 (09:15→17:54)
[2020-08-02] MEDS: FLUTICASONE/VILANTEROL 200-25MCG/INH INH SCH (09:16)
[2020-08-02] MEDS ORDERED: DIPHENHYDRAMINE 50 MG CAPSULE PO PRN (13:00)
[2020-08-02 14:24] VITALS: BP 138/83
[2020-08-02 18:58] VITALS: BP 127/78
[2020-08-02] MEDS: ATORVASTATIN 40 MG TABLET PO SCH (21:29)
[2020-08-03 00:42] VITALS: BP 123/76
[2020-08-03 06:33] VITALS: BP 123/75
[2020-08-03] MEDS ORDERED: hydrOXyzine 50MG TABLET PO SCH (11:30)
[2020-08-03] MEDS: CALCITRIOL 0.25 MCG CAPSULE PO SCH (11:46)
[2020-08-03] MEDS: CHOLECALCIFEROL 5,000u TAB PO SCH (11:47)
[2020-08-03] MEDS: OMEPRAZOLE 20 MG CAPSULE.DR PO SCH (11:47)
[2020-08-03] MEDS: CALCIUM ACETATE 667 MG CAPSULE PO SCH ×3 (11:47→17:35)
[2020-08-03] MEDS: FLUTICASONE/VILANTEROL 200-25MCG/INH INH SCH (11:48)
[2020-08-03] MEDS: DIPHENHYDRAMINE/ZINC CRM 2%, 30GM TP PRN ×2 (11:48→17:49)
[2020-08-03 11:54] VITALS: BP 148/89
[2020-08-03 21:13] VITALS: BP 127/81
[2020-08-03] MEDS: ATORVASTATIN 40 MG TABLET PO SCH (21:15)
[2020-08-04 02:30] VITALS: BP 128/75
[2020-08-04 08:18] VITALS: BP 132/80
[2020-08-04] MEDS: OMEPRAZOLE 20 MG CAPSULE.DR PO SCH (08:23)
[2020-08-04] MEDS: CHOLECALCIFEROL 5,000u TAB PO SCH (08:23)
[2020-08-04] MEDS: CALCIUM ACETATE 667 MG CAPSULE PO SCH ×3 (08:23→17:14)
[2020-08-04] MEDS: CALCITRIOL 0.25 MCG CAPSULE PO SCH (08:23)
[2020-08-04] MEDS: FLUTICASONE/VILANTEROL 200-25MCG/INH INH SCH (08:23)
[2020-08-04] MEDS: DIPHENHYDRAMINE/ZINC CRM 2%, 30GM TP PRN (08:25)
[2020-08-04] MEDS ORDERED: CATHFLO-ALTEPLASE 2 MG/2 ML CATHFLUSH ONE ×2 (11:00)
[2020-08-04 14:00] VITALS: BP 152/90
[2020-08-04 19:35] VITALS: BP 120/78
[2020-08-04] MEDS: ATORVASTATIN 40 MG TABLET PO SCH (21:04)
[2020-08-05 01:52] VITALS: BP 117/75
[2020-08-05 06:25] LABS: ALBUMIN 2.9 g/dL (3.4-5.0); ANION GAP 6 mmol/L (5-15); CALCIUM 8.9 mg/dL (8.5-10.1); CHLORIDE 102 mmol/L (98-107); CREATININE 7.23 mg/dL (0.55-1.02)
[2020-08-05] MEDS: CALCIUM ACETATE 667 MG CAPSULE PO SCH ×3 (08:00→17:00)
[2020-08-05 09:59] VITALS: BP 120/71
[2020-08-05] MEDS: CALCITRIOL 0.25 MCG CAPSULE PO SCH (10:53)
[2020-08-05] MEDS: OMEPRAZOLE 20 MG CAPSULE.DR PO SCH (10:53)
[2020-08-05] MEDS: CHOLECALCIFEROL 5,000u TAB PO SCH (10:53)
[2020-08-05] MEDS: FLUTICASONE/VILANTEROL 200-25MCG/INH INH SCH (10:55)
[2020-08-05 15:18] VITALS: BP 127/74
[2020-08-05] MEDS ORDERED: CALC0.25 PO (15:25)
[2020-08-05] MEDS ORDERED: CALC667C PO (15:25)
[2020-08-05] MEDS ORDERED: ATOR40TA78 PO (15:25)
== END 2020-08-05 18:00 | disposition home or self-care (01) | DRG 720 ==
LOC: ED 22:00 → EDIP 22:50 → 4WST 07-17 00:10 → CCU 07-17 19:54 → 3N 07-19 16:31
PROVIDERS: ADMIT Family Medicine; ATTEND Hospitalist
PROC: 0BH17EZ Insertion of Endotracheal Airway into Trachea, Via Natural or Artificial Opening (ICD-10-PCS; principal; 2020-07-17)
PROC: 30233N1 Transfusion of Nonautologous Red Blood Cells into Peripheral Vein, Percutaneous Approach (ICD-10-PCS; 2020-07-17)
PROC: 5A1935Z Respiratory Ventilation, Less than 24 Consecutive Hours (ICD-10-PCS; 2020-07-17)
PROC: 0JH63XZ Insertion of Tunneled Vascular Access Device into Chest Subcutaneous Tissue and Fascia, Percutaneous Approach (ICD-10-PCS; 2020-07-17)
PROC: 02HV33Z Insertion of Infusion Device into Superior Vena Cava, Percutaneous Approach (ICD-10-PCS; 2020-07-17)
PROC: 5A1D70Z Performance of Urinary Filtration, Intermittent, Less than 6 Hours Per Day (ICD-10-PCS; 2020-07-17)
PROC: B5181ZA Fluoroscopy of Superior Vena Cava using Low Osmolar Contrast, Guidance (ICD-10-PCS; 2020-07-17)
PROC: 5A1D70Z Performance of Urinary Filtration, Intermittent, Less than 6 Hours Per Day (ICD-10-PCS; 2020-07-18)
PROC: 5A1D70Z Performance of Urinary Filtration, Intermittent, Less than 6 Hours Per Day (ICD-10-PCS; 2020-07-21)
PROC: 5A1D70Z Performance of Urinary Filtration, Intermittent, Less than 6 Hours Per Day (ICD-10-PCS; 2020-07-23)
PROC: 5A1D70Z Performance of Urinary Filtration, Intermittent, Less than 6 Hours Per Day (ICD-10-PCS; 2020-07-25)
PROC: 5A1D70Z Performance of Urinary Filtration, Intermittent, Less than 6 Hours Per Day (ICD-10-PCS; 2020-07-28)
PROC: 5A1D70Z Performance of Urinary Filtration, Intermittent, Less than 6 Hours Per Day (ICD-10-PCS; 2020-07-30)
PROC: 5A1D70Z Performance of Urinary Filtration, Intermittent, Less than 6 Hours Per Day (ICD-10-PCS; 2020-08-01)
PROC: 5A1D70Z Performance of Urinary Filtration, Intermittent, Less than 6 Hours Per Day (ICD-10-PCS; 2020-08-04)
PROC: 5A1D70Z Performance of Urinary Filtration, Intermittent, Less than 6 Hours Per Day (ICD-10-PCS; 2020-08-05)
DX: A41.02 Sepsis due to Methicillin resistant Staphylococcus aureus (principal); B96.20 Unspecified Escherichia coli [E. coli] as the cause of diseases classified elsewhere; D25.9 Leiomyoma of uterus, unspecified; D50.9 Iron deficiency anemia, unspecified; D62 Acute posthemorrhagic anemia; D68.59 Other primary thrombophilia; E21.3 Hyperparathyroidism, unspecified; E86.0 Dehydration; E87.2 Acidosis; E87.5 Hyperkalemia; E87.6 Hypokalemia; F41.0 Panic disorder [episodic paroxysmal anxiety]; G40.909 Epilepsy, unspecified, not intractable, without status epilepticus; G93.41 Metabolic encephalopathy; I12.0 Hypertensive chronic kidney disease with stage 5 chronic kidney disease or end stage renal disease; I60.9 Nontraumatic subarachnoid hemorrhage, unspecified; I63.81 Other cerebral infarction due to occlusion or stenosis of small artery; J39.2 Other diseases of pharynx; J45.909 Unspecified asthma, uncomplicated; J96.01 Acute respiratory failure with hypoxia; K85.00 Idiopathic acute pancreatitis without necrosis or infection; K86.2 Cyst of pancreas; M19.90 Unspecified osteoarthritis, unspecified site; D72.829 Elevated white blood cell count, unspecified; N12 Tubulo-interstitial nephritis, not specified as acute or chronic; N17.0 Acute kidney failure with tubular necrosis; N18.6 End stage renal disease; N25.0 Renal osteodystrophy; N28.89 Other specified disorders of kidney and ureter; N63.20 Unspecified lump in the left breast, unspecified quadrant; Z86.73 Personal history of transient ischemic attack (TIA), and cerebral infarction without residual deficits; Z87.442 Personal history of urinary calculi; Z87.891 Personal history of nicotine dependence; Z90.5 Acquired absence of kidney; Z99.2 Dependence on renal dialysis; Z87.01 Personal history of pneumonia (recurrent); Z79.899 Other long term (current) drug therapy; Z88.0 Allergy status to penicillin; Z88.5 Allergy status to narcotic agent; Z79.891 Long term (current) use of opiate analgesic
CPT/HCPCS: J3490 ×2; 36415; 36430; 36558; 36600; 70450; 70544; 70551; 71045; 74022; 74181; 76700; 76937; 80048; 80053; 80061; 80069; 80074; 81001; 82140; 82272; 82306; 82310; 82436; 82728; 82803; 82962; 83540; 83550; 83605; 83690; 83735; 83970; 84100; 84133; 84300; 84484; 85014; 85018; 85025; 85610; 86078; 86480; 86706; 86850; 86900; 86923; 87040; 87070; 87077; 87081; 87086; 87186; 87205; 90935; 93005; 93306; 93880; 94002; 94003; 94150; 95819; 96374; 99156; 99157; 99291; C1894; G0378; J0690; J0696; J0882; J1644; J1953; J2250; J2405; J2704; J2997; J3010; J3370; J7070; C1750; J1642; J2060; J2310; J7030; J7050; P9016

== ENCOUNTER 2020-09-26 15:20 | Emergency (ER) | payer MEDICAID ==
[2020-09-26] VITALS (9 sets, daily range): BP systolic 130–163; BP diastolic 52–94
[~2020-09-26] VITALS: Ht 180.3 cm; Wt 76.9 kg
[~2020-09-26 15:20] MED LIST changes: +ATOR40TA78 PO; +CALC0.25 PO; +CALC667C PO
--- NOTE | 2020-09-26 16:07 | NUR ---
PT STATES WHEN SHE STATES YESTERDAY AT [facility] THEY REMOVED 3L, WAS TOLD THAT HER HBG WAS 6 AND NEEDS A TRANSFUSION, WAS TOLD BY ONE OF THE NURSES, DAVID, NO COMLAINTS OF
[2020-09-26 17:26] LABS: ALANINE AMINOTRANSFERASE 406 U/L (12-78); ALBUMIN 2.9 g/dL (3.4-5.0); ANION GAP 10 mmol/L (5-15); CALCIUM 7.3 mg/dL (8.5-10.1); CHLORIDE 102 mmol/L (98-107); CREATININE 7.88 mg/dL (0.55-1.02)
[2020-09-26 17:28] LABS: ALKALINE PHOSPHATASE 255 U/L (45-117); BILIRUBIN,TOTAL 0.3 mg/dL (0.2-1.0); TOTAL PROTEIN 7.7 g/dL (6.4-8.2)
[2020-09-26 17:41] LABS: MEAN CORPUSCULAR HEMOGLOBIN 28.9 pg (27.0-34.8); MEAN CORPUSCULAR HGB CONC 34.6 g/dL (32.4-35.8); MEAN PLATELET VOLUME 6.7 fL (7.4-10.4); PLATELET COUNT 287 x10^3/uL (130-400)
--- NOTE | 2020-09-26 17:42 | NUR ---
pt in bed, no distress
[2020-09-26 17:53] LABS: MD YES
--- NOTE | 2020-09-26 18:40 | NUR ---
Yair RN: This RN obtained consent for blood transfusion. Ministerio DIAZ at bedside to start blood with this RN. Report back to Ministerio DIAZ.
--- NOTE | 2020-09-26 18:40 | NUR ---
BACK FROM LUNCH. REPORT RECIVED FROM CHERYL DIAZ. VSS STARTING RBC 2 CHECK DONE, NO DISTRESS
[2020-09-26 19:10] LABS: ANISOCYTOSIS 2+; BAND#(MANUAL) 0.08 x10^3/uL; BANDS%(MANUAL) 1 % (0-7); EOS#(MANUAL) 0.31 x10^3/uL (0.0-0.4); EOS% (MANUAL) 4 % (1-7); LYMPH#(MANUAL) 2.03 x10^3/uL (1-3.4); LYMPHS% (MANUAL) 26 % (22-44); MONOS% (MANUAL) 9 % (2-9); SEG#(MANUAL) 4.68 x10^3/uL (1.8-6.8); SEGS% (MANUAL) 60 % (42-75)
[2020-09-26 19:11] LABS: HYPOCHROMIA 2+; MICROCYTOSIS 1+
[2020-09-26 19:12] LABS: <PLATELET ESTIMATE> ADEQUATE
[2020-09-26 19:13] LABS: <PLT MORPHOLOGY> NORMAL PLT MORPH
--- NOTE | 2020-09-26 19:30 | NUR ---
PT IN BED VSS. NO DISTRESS PRBC RUNNING
--- NOTE | 2020-09-26 20:09 | NUR ---
PT IN BED NO DISTRESS,
--- NOTE | 2020-09-26 20:52 | NUR ---
PT IN BED NO DISTRESS
--- NOTE | 2020-09-26 21:23 | NUR ---
PT IN BED NO DISTRESS, 2ND PRBC RUNNING, VSS, PT STATES NO CHANGE
--- NOTE | 2020-09-26 21:59 | NUR ---
REPORT GIVEN TO RAKAN DIAZ, 2ND PRBC COMPLETE
--- NOTE | 2020-09-26 23:24 | NUR ---
iv DC'D INTACT. PT WITH STABLE VS. PT GIVEN WRITTEN INSTRUCTIONS. pT STATES SHE UNDERSTANDS. PT OUT OF DEPT IN WC. 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
== END 2020-09-26 23:25 | disposition home or self-care (01) ==
LOC: ED 19:38
DX: D53.9 Nutritional anemia, unspecified (principal); I12.0 Hypertensive chronic kidney disease with stage 5 chronic kidney disease or end stage renal disease; N18.6 End stage renal disease; R94.5 Abnormal results of liver function studies; R11.0 Nausea; R53.1 Weakness; E87.5 Hyperkalemia; J45.909 Unspecified asthma, uncomplicated; M19.90 Unspecified osteoarthritis, unspecified site; Z88.0 Allergy status to penicillin; Z88.9 Allergy status to unspecified drugs, medicaments and biological substances
CPT/HCPCS: 36415; 36430; 80053; 85018; 85025; 86850; 86900; 86923; 93005; 99285; P9016

== ENCOUNTER 2020-11-26 18:01 | Inpatient (IN) | payer MEDICAID ==
[~2020-11-26] VITALS: Ht 180.3 cm; Wt 77.6 kg
[2020-11-26] VITALS (8 sets, daily range): BP systolic 100–139; BP diastolic 45–67
--- NOTE | 2020-11-26 18:07 | NUR ---
PT BIBA FOR GENERALIZED WEAKNESS , REPORT TAKEN FROM EMS. PT HAS BEEN UNABLE TO WALK X 2 WEEKS, N/V X 2 WEEKS. MISSED DIALYSIS X 2 WEEKS. PT STATES SHE LOST DESIRE TO CONTINUE DIALYSIS. PT DENIES SI. FSBS 97 ON ARRIVAL. PT HAS DRIED EMESIS TO MOUTH, BROWN IN COLOR. PT DENIES ETOH. PT IS AWAKE, ALERT, BUT BARELY ABLE TO TALK, STATING THIS IS DUE TO NAUSEA. PT FOLLOWS COMMANDS. PT DENIES PAIN. PT PLACED ON ALL MONITORS. PIV PLACED TO LEFT EJ BY TASK JOE PERRY D/T POOR VENOUS ACCESS. REPORT GIVEN TO PRIMARY JOE JIMENEZ AT BEDSIDE. AWAITING PROVIDER AND ORDERS.
--- NOTE | 2020-11-26 18:29 | NUR ---
PT BIB EMS FOR N/V AND INABILITY TO WALK TIMES 2 WEEKS. PT STOPPED DIALYSIS 2 WEEKS AGO SHE DIDN'T WANT TO CONTINUE. PT WEAK AND WITHDRAWN, BUT ANSWERING QUESTIONS. PT DENIES CP, ABD PAIN, OR SEPULVEDA. PT VOMIT BROWN IN COLOR.
[2020-11-26] MEDS ORDERED: SODIUM CHLORIDE FLUSH 10ML SYR IVF ONE (19:00)
--- NOTE | 2020-11-26 19:00 | NUR ---
REPORT TO JOE LANDERS
[2020-11-26 19:02] LABS: MEAN CORPUSCULAR HGB CONC 32.8 g/dL (32.4-35.8); MEAN PLATELET VOLUME 7.9 fL (7.4-10.4); PLATELET COUNT 248 x10^3/uL (130-400); RED BLOOD COUNT 1.51 x10^6/uL (3.82-5.3); RED CELL DISTRIBUTION WIDTH 15.1 % (9.6-15.2)
[2020-11-26 19:12] LABS: MD YES
[2020-11-26 19:13] LABS: ALANINE AMINOTRANSFERASE 46 U/L (12-78); ALBUMIN 3.1 g/dL (3.4-5.0); CALCIUM 7.9 mg/dL (8.5-10.1); CHLORIDE 109 mmol/L (98-107)
[2020-11-26 19:20] LABS: ALKALINE PHOSPHATASE 263 U/L (45-117); BILIRUBIN,TOTAL 0.3 mg/dL (0.2-1.0); TOTAL PROTEIN 7.3 g/dL (6.4-8.2)
[2020-11-26 19:34] LABS: BAND#(MANUAL) 0.12 x10^3/uL; BANDS%(MANUAL) 1 % (0-7); LYMPH#(MANUAL) 0.95 x10^3/uL (1-3.4); LYMPHS% (MANUAL) 8 % (22-44); MONOS#(MANUAL) 0.24 x10^3/uL (0.3-2.7); MONOS% (MANUAL) 2 % (2-9); SEG#(MANUAL) 10.59 x10^3/uL (1.8-6.8); SEGS% (MANUAL) 89 % (42-75)
[2020-11-26 19:35] LABS: <PLATELET ESTIMATE> ADEQUATE; <PLT MORPHOLOGY> NORMAL PLT MORPH; ANISOCYTOSIS 1+; HYPOCHROMIA 1+; MICROCYTOSIS 1+; POLYCHROMASIA 1+; TARGET CELLS 1+
[2020-11-26 19:51] LABS: ANION GAP 21 mmol/L (5-15)
--- NOTE | 2020-11-26 20:05 | NUR ---
FIRST UNIT OF PRBC STILL RUNNING, PT STATES STILL FEELING OK, VSS, SEE TRANSFUSION CHARTING FOR VITALS. LAB AT BEDSIDE FOR BLOOD CULTURES, NEW PORT DRESSING PLACED ON RIGHT CHEST
[2020-11-26] MEDS ORDERED: CALCIUM CHLORIDE 10%, 10ML SYR ONE (20:18)
[2020-11-26] MEDS ORDERED: SODIUM BICARB 8.4%, 50ML SYRINGE ONE (20:19)
[2020-11-26] MEDS ORDERED: DEXTROSE 50%, 50ML SYRINGE ONE (20:19)
[2020-11-26] MEDS ORDERED: INSULIN SINGLE DOSE, ER ONE (20:20)
[2020-11-26 20:23] LABS: INTERNATIONAL NORMALIZED RATIO 1.1 (0.93-1.1); PROTHROMBIN TIME 11.8 Seconds (9.6-11.5)
[2020-11-26] MEDS ORDERED: CALCIUM CHLORIDE 10%, 10ML SYR IVPush ONE (20:30)
[2020-11-26] MEDS ORDERED: SODIUM BICARB 8.4%, 50ML SYRINGE IVPush ONE (20:30)
[2020-11-26] MEDS ORDERED: SODIUM BICARBONATE 8.4% 150 MEQ in DEXTROSE 5% 1,000 ML IV SCH (20:30)
[2020-11-26] MEDS ORDERED: DEXTROSE 50%, 50ML SYRINGE IVPush ONE (20:30)
[2020-11-26] MEDS ORDERED: INSULIN REGULAR 100 UNITS/ML, 3ML VIAL IVPush ONE (20:30)
--- NOTE | 2020-11-26 20:32 | NUR ---
task rn: second IV placed. 1st attempt patient pulled back and this ultimately infiltrated IV insertion. this was removed and 2nd attempt successful. assisting RN oleksandr placed 3rd iv in left chest due to acuity
--- NOTE | 2020-11-26 20:39 | NUR ---
CT DELAY, PT NEED NURSING CARE.
--- NOTE | 2020-11-26 20:46 | NUR ---
PT MEDICATED PER EMAR, 2 NEW PIV PLACED. PT STILL VERY LETHARGIC, MONITORS IN PLACE, POSITIVE GI BLEED, PT STATES UNDERSTANDING OF PROCEDURES
[2020-11-26] MEDS ORDERED: SODIUM CHLORIDE FLUSH 10ML SYR IVF PRN (21:00)
--- NOTE | 2020-11-26 21:08 | NUR ---
PT TO CT
--- NOTE | 2020-11-26 21:25 | NUR ---
REPORT GIVEN TO JOE ALVARES (DIALSIS RN). PER MD PT STABLE ENOUGH TO GO UPSTAIRS FOR DYALSIS
--- NOTE | 2020-11-26 21:53 | NUR ---
REPORT GIVEN TO JOE BROWNE
[2020-11-26] MEDS ORDERED: PANTOPRAZOLE 80 MG in SODIUM CHLORIDE 0.9% 50 ML IV ONE (22:00)
[2020-11-26] MEDS ORDERED: HYDROmorphone 2 MG/ML, 1ML IVPush PRN (22:00)
[2020-11-26] MEDS ORDERED: LABETALOL 5MG/ML, 20ML IVPush PRN (22:00)
[2020-11-26] MEDS ORDERED: ACETAMINOPHEN 325 MG TABLET PO PRN (22:00)
--- NOTE | 2020-11-26 22:05 | NUR ---
2ND UNIT OF BLOOD STILL RUNNING, Q 15 VITALS COMPLTETED, JOE BROWNE AWARE. PT AWARE OF POC, ALL BELONGINGS TRANSFERED UP WITH PT.
[2020-11-26] MEDS: PANTOPRAZOLE 80 MG in SODIUM CHLORIDE 0.9% 100 ML IV SCH (22:43)
[2020-11-26] MEDS: SODIUM BICARBONATE 8.4% 150 MEQ in DEXTROSE 5% 1,000 ML IV SCH (22:47)
[2020-11-26] MEDS: ONDANSETRON 2MG/ML, 2ML IVPush PRN (23:42)
[2020-11-27] VITALS (10 sets, daily range): BP systolic 102–126; BP diastolic 50–71
[2020-11-27] MEDS ORDERED: NOREPINEPHRINE 8 MG in SODIUM CHLORIDE 0.9% 242 ML IV PRN ×2 (00:30→03:00)
[2020-11-27 01:04] LABS: ANION GAP 16 mmol/L (5-15); CALCIUM 8.5 mg/dL (8.5-10.1); CHLORIDE 106 mmol/L (98-107)
[2020-11-27] MEDS ORDERED: VANCOMYCIN PER PHARMACY MC PRN (02:30)
[2020-11-27] MEDS ORDERED: PIPERACILLIN/TAZO/PMX 3.375GM 50 ML IV SCH (02:30)
[2020-11-27] MEDS ORDERED: PHARMACY MAY ADJ FOR RENAL FX MC PRN (02:30)
[2020-11-27] MEDS ORDERED: LIDOCAINE-MPF 1%, 2ML ENDO PRN (03:00)
[2020-11-27] MEDS ORDERED: PHARMACOKINETIC MONITORING MC PRN (03:00)
[2020-11-27] MEDS ORDERED: PHARMACY MAY ADJ FOR RENAL FX MC SCH (03:00)
[2020-11-27] MEDS ORDERED: ONDANSETRON 2MG/ML, 2ML IV PRN (03:00)
[2020-11-27] MEDS ORDERED: DEXTROSE 50%, 50ML SYRINGE IVPush PRN (03:00)
[2020-11-27] MEDS ORDERED: PHARMACOKINETIC CONSULTATION MC ONE (03:00)
[2020-11-27] MEDS ORDERED: DEXTROSE 4 GM TAB.CHEW PO PRN (03:00)
[2020-11-27] MEDS ORDERED: SENNA/DOCUSATE TABLET NG PRN (03:00)
[2020-11-27] MEDS ORDERED: LORazepam 2 MG/ML, 1ML IVPush PRN (03:00)
[2020-11-27] MEDS ORDERED: VANCOMYCIN 1,400 MG in SODIUM CHLORIDE 0.9% 250 ML IV ONE (03:00)
[2020-11-27] MEDS ORDERED: GLUCAGON 1 MG IM PRN (03:00)
[2020-11-27] MEDS: PROPOFOL 100 ML IV PRN ×2 (03:16→13:53)
[2020-11-27 05:14] LABS: BASOPHILS % (AUTO) 0 % (0-1); EOSINOPHILS % (AUTO) 0 % (1-7); LYMPHOCYTES % (AUTO) 6 % (22-44); MEAN CORPUSCULAR HEMOGLOBIN 29.4 pg (27.0-34.8); MEAN CORPUSCULAR HGB CONC 34.7 g/dL (32.4-35.8); MEAN PLATELET VOLUME 7.4 fL (7.4-10.4); MONOCYTES % (AUTO) 11 % (2-9); NEUTROPHILS % (AUTO) 83 % (42-75); PLATELET COUNT 149 x10^3/uL (130-400); RED BLOOD COUNT 1.97 x10^6/uL (3.82-5.3); RED CELL DISTRIBUTION WIDTH 13.8 % (9.6-15.2)
[2020-11-27 05:17] LABS: MD NO
[2020-11-27] MEDS: SODIUM BICARBONATE 8.4% 150 MEQ in DEXTROSE 5% 1,000 ML IV SCH (05:36)
[2020-11-27] MEDS: PANTOPRAZOLE 80 MG in SODIUM CHLORIDE 0.9% 100 ML IV SCH ×2 (05:36→14:32)
[2020-11-27] MEDS ORDERED: LEVOFLOXACIN/PMX 750MG/150ML 150 ML IVPB ONE (06:00)
[2020-11-27 06:34] LABS: ANION GAP 15 mmol/L (5-15); CALCIUM 7.8 mg/dL (8.5-10.1); CHLORIDE 97 mmol/L (98-107); CREATININE 9.44 mg/dL (0.55-1.02); SALICYLATE LEVEL 3.1 mg/dL (2.8-20.0)
[2020-11-27] MEDS ORDERED: FENTANYL PF 100 MCG/2ML ONE (12:53)
[2020-11-27] MEDS: SODIUM CHLORIDE FLUSH 10ML SYR IVF SCH ×2 (12:55→19:17)
[2020-11-27] MEDS ORDERED: FENTANYL PF 100 MCG/2ML IV ONE (13:00)
[2020-11-27 14:42] LABS: AMPHETAMINE SCREEN, URINE Negative (Negative); BARBITURATE SCREEN, URINE Negative (Negative); BENZODIAZEPINE SCREEN, URINE Negative (Negative); CANNABINOID SCREEN, URINE Negative (Negative); COCAINE SCREEN, URINE Negative (Negative); METHADONE SCREEN, URINE Negative (Negative); OPIATE SCREEN, URINE Negative (Negative)
[2020-11-27 14:53] LABS: MICROSCOPIC INDICATED
[2020-11-27] MEDS ORDERED: ROCURONIUM 10MG/ML,5ML ONE (20:23)
[2020-11-27] MEDS ORDERED: ETOMIDATE 20 MG/10 ML ONE (20:23)
[2020-11-28] MEDS: PROPOFOL 100 ML IV PRN ×2 (00:02→05:33)
[2020-11-28] MEDS: PANTOPRAZOLE 80 MG in SODIUM CHLORIDE 0.9% 100 ML IV SCH (04:04)
[2020-11-28 04:32] LABS: BASOPHILS % (AUTO) 0 % (0-1); EOSINOPHILS % (AUTO) 1 % (1-7); LYMPHOCYTES % (AUTO) 21 % (22-44); MEAN CORPUSCULAR HEMOGLOBIN 30.1 pg (27.0-34.8); MEAN CORPUSCULAR HGB CONC 36.1 g/dL (32.4-35.8); MEAN PLATELET VOLUME 7.9 fL (7.4-10.4); MONOCYTES % (AUTO) 11 % (2-9); NEUTROPHILS % (AUTO) 67 % (42-75); PLATELET COUNT 113 x10^3/uL (130-400); RED BLOOD COUNT 2.61 x10^6/uL (3.82-5.3); RED CELL DISTRIBUTION WIDTH 14.3 % (9.6-15.2)
[2020-11-28 04:39] LABS: ANION GAP 15 mmol/L (5-15); CALCIUM 6.5 mg/dL (8.5-10.1); CHLORIDE 97 mmol/L (98-107)
[2020-11-28 04:40] LABS: MD NO; VANCOMYCIN,RANDOM 23.3 mcg/mL
[2020-11-28] MEDS: PANTOPRAZOLE 40 MG IV IVPush SCH ×2 (09:30→21:30)
[2020-11-28] MEDS: SODIUM CHLORIDE FLUSH 10ML SYR IVF SCH ×2 (09:31→20:58)
[2020-11-28] MEDS ORDERED: ALBUTEROL HFA 90 MCG/SPRAY INH PRN (11:00)
[2020-11-28] MEDS ORDERED: POTASSIUM CHLORIDE 20 MEQ PACKET PO ONE (13:00)
[2020-11-28] MEDS: ONDANSETRON 2MG/ML, 2ML IVPush PRN (13:46)
[2020-11-28] MEDS ORDERED: MEROPENEM 1 GM in SODIUM CHLORIDE 0.9% 100 ML IV SCH (20:00)
[2020-11-28] MEDS ORDERED: MEROPENEM 500 MG in SODIUM CHLORIDE 0.9% 100 ML IV SCH (20:00)
[2020-11-28] MEDS ORDERED: VANCOMYCIN 1,400 MG in SODIUM CHLORIDE 0.9% 250 ML IV ONE (20:00)
[2020-11-29 04:22] LABS: BASOPHILS % (AUTO) 0 % (0-1); EOSINOPHILS % (AUTO) 3 % (1-7); LYMPHOCYTES % (AUTO) 18 % (22-44); MEAN CORPUSCULAR HEMOGLOBIN 30.2 pg (27.0-34.8); MEAN CORPUSCULAR HGB CONC 35.6 g/dL (32.4-35.8); MEAN PLATELET VOLUME 7.6 fL (7.4-10.4); MONOCYTES % (AUTO) 14 % (2-9); NEUTROPHILS % (AUTO) 65 % (42-75); PLATELET COUNT 87 x10^3/uL (130-400); RED BLOOD COUNT 2.57 x10^6/uL (3.82-5.3); RED CELL DISTRIBUTION WIDTH 14.3 % (9.6-15.2)
[2020-11-29 04:24] LABS: ANION GAP 10 mmol/L (5-15); CALCIUM 7.3 mg/dL (8.5-10.1); CHLORIDE 104 mmol/L (98-107); CREATININE 8.36 mg/dL (0.55-1.02)
[2020-11-29 04:28] LABS: MD NO
[2020-11-29] MEDS ORDERED: LEVOFLOXACIN/PMX 500MG/100ML 100 ML IV SCH (06:00)
[2020-11-29] MEDS: SODIUM CHLORIDE FLUSH 10ML SYR IVF SCH ×2 (10:07→21:02)
[2020-11-29] MEDS: PANTOPRAZOLE 40 MG IV IVPush SCH ×2 (10:07→21:02)
[2020-11-29 15:43] VITALS: BP 132/85
[2020-11-29] MEDS: ONDANSETRON 2MG/ML, 2ML IVPush PRN (15:51)
[2020-11-29] MEDS ORDERED: ARANESP 100 MCG/ML **ESRD SQ SCH (17:30)
[2020-11-29] MEDS: CEFAZOLIN PMX 2GM/50ML 50 ML IVPB SCH (18:03)
[2020-11-29 19:08] VITALS: BP 138/84
[2020-11-30 00:57] VITALS: BP 131/77
[2020-11-30 04:43] LABS: BASOPHILS % (AUTO) 1 % (0-1); EOSINOPHILS % (AUTO) 4 % (1-7); LYMPHOCYTES % (AUTO) 17 % (22-44); MEAN CORPUSCULAR HEMOGLOBIN 29.8 pg (27.0-34.8); MEAN CORPUSCULAR HGB CONC 34.5 g/dL (32.4-35.8); MONOCYTES % (AUTO) 13 % (2-9); NEUTROPHILS % (AUTO) 66 % (42-75); RED BLOOD COUNT 2.83 x10^6/uL (3.82-5.3); RED CELL DISTRIBUTION WIDTH 14.1 % (9.6-15.2)
[2020-11-30 04:46] LABS: PLATELET COUNT 90 x10^3/uL (130-400)
[2020-11-30 04:49] LABS: MD NO
[2020-11-30 04:58] LABS: ANION GAP 10 mmol/L (5-15); CHLORIDE 103 mmol/L (98-107)
[2020-11-30 05:01] LABS: CREATININE 6.46 mg/dL (0.55-1.02); TRIGLYCERIDES 116 mg/dL (50-200)
[2020-11-30] MEDS: PANTOPRAZOLE 40 MG IV IVPush SCH ×2 (08:13→21:17)
[2020-11-30] MEDS: ONDANSETRON 2MG/ML, 2ML IVPush PRN ×2 (08:13→21:45)
[2020-11-30] MEDS: SODIUM CHLORIDE FLUSH 10ML SYR IVF SCH ×2 (08:13→21:17)
[2020-11-30] MEDS ORDERED: LABETALOL 5MG/ML, 20ML IV PRN (08:30)
[2020-11-30] MEDS ORDERED: ONDANSETRON 2MG/ML, 2ML IVPush PRN (08:30)
[2020-11-30] MEDS ORDERED: FENTANYL PF 100 MCG/2ML IV PRN (08:30)
[2020-11-30] MEDS ORDERED: ALBUTEROL SULFATE 2.5 MG/3 ML NPPB PRN (08:30)
[2020-11-30] MEDS ORDERED: PROPOFOL 10 MG/ML, 20ML ONE (08:34)
[2020-11-30] MEDS ORDERED: CHLORHEXIDINE 15 ML UDC ONE (08:35)
[2020-11-30 09:23] VITALS: BP 164/78
[2020-11-30 11:42] VITALS: BP 116/65
[2020-11-30] MEDS: SEVELAMER CARBONATE 800MG TAB PO SCH (17:41)
[2020-11-30] MEDS: CEFAZOLIN PMX 2GM/50ML 50 ML IVPB SCH (17:43)
[2020-11-30] MEDS ORDERED: CEFAZOLIN 2,000 MG in SODIUM CHLORIDE 0.9% 50 ML IV SCH (18:00)
[2020-11-30 19:11] VITALS: BP 123/75
[2020-12-01 06:18] LABS: ALBUMIN 2.6 g/dL (3.4-5.0); ANION GAP 11 mmol/L (5-15); CALCIUM 6.9 mg/dL (8.5-10.1); CHLORIDE 103 mmol/L (98-107)
[2020-12-01 06:19] LABS: CREATININE 8.27 mg/dL (0.55-1.02)
[2020-12-01 06:27] LABS: BASOPHILS % (AUTO) 1 % (0-1); EOSINOPHILS % (AUTO) 5 % (1-7); LYMPHOCYTES % (AUTO) 13 % (22-44); MEAN CORPUSCULAR HEMOGLOBIN 29.8 pg (27.0-34.8); MEAN CORPUSCULAR HGB CONC 34.6 g/dL (32.4-35.8); MONOCYTES % (AUTO) 12 % (2-9); NEUTROPHILS % (AUTO) 69 % (42-75); PLATELET COUNT 97 x10^3/uL (130-400)
[2020-12-01 06:28] LABS: MD NO
[2020-12-01 06:43] VITALS: BP 117/64
[2020-12-01] MEDS: SEVELAMER CARBONATE 800MG TAB PO SCH ×3 (07:43→17:05)
[2020-12-01] MEDS: PANTOPRAZOLE 40 MG IV IVPush SCH (07:43)
[2020-12-01] MEDS: SODIUM CHLORIDE FLUSH 10ML SYR IVF SCH ×2 (07:44→22:26)
[2020-12-01 11:31] VITALS: BP 138/79
[2020-12-01] MEDS: PANTOPRAZOLE 40MG TABLET PO SCH (17:04)
[2020-12-01 18:51] VITALS: BP 143/82
[2020-12-01] MEDS: CEFAZOLIN PMX 2GM/50ML 50 ML IVPB SCH (22:26)
[2020-12-02 01:28] VITALS: BP 111/65
[2020-12-02] MEDS: PANTOPRAZOLE 40MG TABLET PO SCH ×2 (05:34→16:30)
[2020-12-02 07:20] VITALS: BP 111/67
[2020-12-02 08:00] LABS: BASOPHILS % (AUTO) 1 % (0-1); EOSINOPHILS % (AUTO) 4 % (1-7); LYMPHOCYTES % (AUTO) 13 % (22-44); MEAN CORPUSCULAR HEMOGLOBIN 29.8 pg (27.0-34.8); MEAN CORPUSCULAR HGB CONC 34.3 g/dL (32.4-35.8); MEAN PLATELET VOLUME 7.7 fL (7.4-10.4); MONOCYTES % (AUTO) 14 % (2-9); NEUTROPHILS % (AUTO) 68 % (42-75); PLATELET COUNT 100 x10^3/uL (130-400); RED BLOOD COUNT 2.86 x10^6/uL (3.82-5.3); RED CELL DISTRIBUTION WIDTH 14.6 % (9.6-15.2)
[2020-12-02 08:04] LABS: MD NO
[2020-12-02 08:08] LABS: ANION GAP 4 mmol/L (5-15); CALCIUM 8.1 mg/dL (8.5-10.1); CHLORIDE 101 mmol/L (98-107); CREATININE 5.13 mg/dL (0.55-1.02)
[2020-12-02] MEDS: SEVELAMER CARBONATE 800MG TAB PO SCH ×3 (08:08→16:29)
[2020-12-02] MEDS: SODIUM CHLORIDE FLUSH 10ML SYR IVF SCH ×2 (08:08→22:06)
[2020-12-02 12:21] VITALS: BP 138/78
[2020-12-02] MEDS ORDERED: CEFAZOLIN PMX 2GM/50ML 50 ML IVPB ONE (18:00)
[2020-12-02 18:30] VITALS: BP 122/69
[2020-12-02 21:52] VITALS: BP 135/62
[2020-12-03 02:35] VITALS: BP 92/61
[2020-12-03 03:00] VITALS: BP 129/79
[2020-12-03 04:55] LABS: BASOPHILS % (AUTO) 1 % (0-1); EOSINOPHILS % (AUTO) 5 % (1-7); LYMPHOCYTES % (AUTO) 15 % (22-44); MEAN CORPUSCULAR HEMOGLOBIN 29.6 pg (27.0-34.8); MEAN CORPUSCULAR HGB CONC 34.1 g/dL (32.4-35.8); MEAN PLATELET VOLUME 7.8 fL (7.4-10.4); MONOCYTES % (AUTO) 16 % (2-9); NEUTROPHILS % (AUTO) 63 % (42-75); PLATELET COUNT 101 x10^3/uL (130-400); RED BLOOD COUNT 2.82 x10^6/uL (3.82-5.3); RED CELL DISTRIBUTION WIDTH 14.4 % (9.6-15.2)
[2020-12-03 05:03] LABS: ANION GAP 7 mmol/L (5-15); CALCIUM 8.3 mg/dL (8.5-10.1); CHLORIDE 103 mmol/L (98-107)
[2020-12-03 05:04] LABS: CREATININE 3.55 mg/dL (0.55-1.02)
[2020-12-03 05:07] LABS: MD NO
[2020-12-03] MEDS: PANTOPRAZOLE 40MG TABLET PO SCH (05:29)
[2020-12-03 07:08] VITALS: BP 92/57
[2020-12-03] MEDS: SEVELAMER CARBONATE 800MG TAB PO SCH ×2 (08:17→12:17)
[2020-12-03] MEDS: SODIUM CHLORIDE FLUSH 10ML SYR IVF SCH (08:17)
[2020-12-03 13:30] VITALS: BP 121/69
[2020-12-03] MEDS ORDERED: PANT40TA6 PO (15:58)
[2020-12-03] MEDS ORDERED: CEFA2PLA9 IV (16:49)
== END 2020-12-03 16:45 | disposition home or self-care (01) | DRG 720 ==
LOC: ED 19:04 → EDIP 20:54 → CCU 22:12 → 4WST 11-29 15:54 → DCLOUNGE 12-03 16:41
PROVIDERS: ADMIT Family Medicine; ATTEND Internal Medicine
PROC: 30233N1 Transfusion of Nonautologous Red Blood Cells into Peripheral Vein, Percutaneous Approach (ICD-10-PCS; 2020-11-26)
PROC: 5A1945Z Respiratory Ventilation, 24-96 Consecutive Hours (ICD-10-PCS; 2020-11-27)
PROC: 0BH17EZ Insertion of Endotracheal Airway into Trachea, Via Natural or Artificial Opening (ICD-10-PCS; 2020-11-27)
PROC: 0DB68ZX Excision of Stomach, Via Natural or Artificial Opening Endoscopic, Diagnostic (ICD-10-PCS; principal; 2020-11-30 08:30)
PROC: 5A1D70Z Performance of Urinary Filtration, Intermittent, Less than 6 Hours Per Day (ICD-10-PCS; 2020-12-01)
DX: A41.9 Sepsis, unspecified organism (principal); B96.5 Pseudomonas (aeruginosa) (mallei) (pseudomallei) as the cause of diseases classified elsewhere; D25.9 Leiomyoma of uterus, unspecified; D62 Acute posthemorrhagic anemia; D63.1 Anemia in chronic kidney disease; E11.22 Type 2 diabetes mellitus with diabetic chronic kidney disease; I12.0 Hypertensive chronic kidney disease with stage 5 chronic kidney disease or end stage renal disease; J18.9 Pneumonia, unspecified organism; J44.0 Chronic obstructive pulmonary disease with (acute) lower respiratory infection; J96.01 Acute respiratory failure with hypoxia; K29.50 Unspecified chronic gastritis without bleeding; K44.9 Diaphragmatic hernia without obstruction or gangrene; K85.90 Acute pancreatitis without necrosis or infection, unspecified; N17.9 Acute kidney failure, unspecified; N18.6 End stage renal disease; I71.2 Thoracic aortic aneurysm, without rupture; N25.0 Renal osteodystrophy; E83.51 Hypocalcemia; E87.5 Hyperkalemia; Z20.822 Contact with and (suspected) exposure to COVID-19; E87.6 Hypokalemia; F41.0 Panic disorder [episodic paroxysmal anxiety]; R19.04 Left lower quadrant abdominal swelling, mass and lump; B96.20 Unspecified Escherichia coli [E. coli] as the cause of diseases classified elsewhere; N39.0 Urinary tract infection, site not specified; G93.41 Metabolic encephalopathy; R56.9 Unspecified convulsions; R57.8 Other shock; Z79.82 Long term (current) use of aspirin; Z82.49 Family history of ischemic heart disease and other diseases of the circulatory system; Z83.3 Family history of diabetes mellitus; Z86.73 Personal history of transient ischemic attack (TIA), and cerebral infarction without residual deficits; Z87.440 Personal history of urinary (tract) infections; Z87.891 Personal history of nicotine dependence; Z90.5 Acquired absence of kidney; Z91.15 Patient's noncompliance with renal dialysis; Z91.19 Patient's noncompliance with other medical treatment and regimen; Z99.11 Dependence on respirator [ventilator] status; Z99.2 Dependence on renal dialysis; Z88.0 Allergy status to penicillin; Z88.5 Allergy status to narcotic agent
CPT/HCPCS: 36415; 36430; 36600; 70450; 71045; 71250; 72195; 74176; 76856; 80048; 80053; 80069; 80179; 80202; 80307; 81001; 82140; 82803; 82962; 83605; 83690; 83735; 83880; 84100; 84443; 84478; 85014; 85018; 85025; 85610; 85730; 86480; 86706; 86709; 86850; 86900; 86923; 87040; 87070; 87077; 87081; 87086; 87186; 87205; 87340; 87635; 88305; 90935; 93005; 94002; 94003; 95819; 96374; 96375; 99291; G0378; J0690; J0882; J1956; J2185; J2405; J2704; J3010; J3370; J7070; C9113; G0480; J1815; J7050; P9016